=== PATIENT | male | born 1945 ===

== ENCOUNTER 2024-08-29 17:07 | Inpatient (IN) | payer OTHER ==
--- NOTE | 2024-08-29 17:22 | ED ---
General Adult HPI - General Chief complaint: Shortness of Breath Stated complaint: ANKIT Time Seen by Provider: 08/29/24 17:15 Source: patient, EMS, RN notes reviewed Mode of arrival: EMS Limitations: no limitations - History of Present Illness Initial comments: Patient is a 79-year-old male present to the emergency department with concerns with difficulty breathing. Symptoms have been occurring for months, worse today. Patient does have cough. Patient does feel more short of breath with cough. No fever. No calf pain or swelling. Patient does have a history of smoking however does not believe he is diagnosed with COPD. - Related Data Allergies Allergy/AdvReac Type Severity Reaction Status Date / Time No Known Allergies Allergy Verified 08/29/24 17:18 Review of Systems ROS Statement: Those systems with pertinent positive or pertinent negative responses have been documented in the HPI. ROS Other: All systems not noted in ROS Statement are negative. Constitutional: Denies: fever Eyes: Denies: eye pain ENT: Denies: ear pain Respiratory: Reports: as per HPI, cough, dyspnea Cardiovascular: Denies: chest pain Endocrine: Reports: fatigue Gastrointestinal: Denies: abdominal pain Past Medical History History of Any Multi-Drug Resistant Organisms: None Reported Past Psychological History: Unable to Obtain Smoking Status: Former smoker Past Alcohol Use History: None Reported Past Drug Use History: None Reported General Exam Limitations: no limitations General appearance: alert, in no apparent distress Head exam: Present: normocephalic Eye exam: Present: normal appearance Neck exam: Present: normal inspection Respiratory exam: Present: rhonchi, decreased breath sounds Cardiovascular Exam: Present: regular rate, normal rhythm GI/Abdominal exam: Present: soft. Absent: tenderness Extremities exam: Present: normal inspection. Absent: pedal edema, calf tenderness Neurological exam: Present: alert Psychiatric exam: Present: normal affect, normal mood Skin exam: Present: normal color Course Vital Signs 08/29/24 08/29/24 08/29/24 17:09 17:49 18:31 Temperature 97.4 F L Pulse Rate 94 93 90 Respiratory 20 16 22 Rate Blood Pressure 138/100 148/89 123/89 O2 Sat by Pulse 100 98 99 Oximetry 08/29/24 08/29/24 18:41 18:43 Temperature Pulse Rate 85 Respiratory 14 22 Rate Blood Pressure 123/89 O2 Sat by Pulse 100 Oximetry Medical Decision Making - Medical Decision Making Was pt. sent in by a medical professional or institution ([facility]ERMAN Murphy, [facility], urgent care, hospital, or long term...) When possible be specific @ -No Did you speak to anyone other than the patient for history (EMS, parent, family, police, friend...)? What history was obtained from this source @ -No Did you review nursing and triage notes (agree or disagree)? Why? @ -I reviewed and agree with nursing and triage notes Were old charts reviewed (outside hosp., previous admission, EMS record, old EKG, old radiological studies, urgent care reports/EKG's, long term records)? Report findings @ -No old charts were reviewed Differential Diagnosis (chest pain, altered mental status, abdominal pain women, abdominal pain men, vaginal bleeding, weakness, fever, dyspnea, syncope, headache, dizziness, GI bleed, back pain, seizure, CVA, palpatations, mental health, musculoskeletal)? @ -Differential Dyspnea: Coronary syndrome, arrhythmia, tamponade, asthma, COPD, pulmonary embolism, pneumonia, pneumothorax, pulmonary effusion, anaphylaxis, diabetic ketoacidosis, flailed chest, pulmonary contusion, diaphragmatic rupture, anemia, neuromuscular, this is not meant to be an all-inclusive list. EKG interpreted by me (3pts min.). @ -As above X-rays interpreted by me (1pt min.). @ -Chest x-ray shows diffuse interstitial changes CT interpreted by me (1pt min.). @ -CT scan chest shows diffuse honeycomb appearance U/S interpreted by me (1pt. min.). @ -None done What testing was considered but not performed or refused? (CT, X-rays, U/S, labs)? Why? @ -None What meds were considered but not given or refused? Why? @ -None Did you discuss the management of the patient with other professionals (professionals i.e. JERMAN Murphy, [facility] GRINDER, lab, RT, psych nurse, child welfare social worker, senior principal process engineer, teacher, food safety officer, correctional case manager)? Give summary @ -Case was discussed with Dr. Jessica trujillo [facility] who will admit covering hospital call Was smoking cessation discussed for >3mins.? @ -No Was critical care preformed (if so, how long)? @ -No Were there social determinants of health that impacted care today? How? (Homelessness, low income, unemployed, alcoholism, drug addiction, transportation, low edu. Level, literacy, decrease access to med. care, shelter, rehab)? @ -No Was there de-escalation of care discussed even if they declined (Discuss DNR or withdrawal of care, Hospice)? DNR status @ -No What co-morbidities impacted this encounter? (DM, HTN, Smoking, COPD, CAD, Cancer, CVA, ARF, Chemo, Hep., AIDS, mental health diagnosis, sleep apnea, mor bid obesity)? @ -History of tobacco use Was patient admitted / discharged? Hospital course, mention meds given and route, prescriptions, significant lab abnormalities, going to OR and other pertinent info. @ -Patient presents with cough and dyspnea. Patient presents like COPD patient however no previous diagnosis. Patient reevaluated and updated. Patient will be admitted with pulmonary consult. Admission orders written. Undiagnosed new problem with uncertain prognosis? @ -No Drug Therapy requiring intensive monitoring for toxicity (Heparin, Nitro, Insulin, Cardizem)? @ -No Were any procedures done? @ -No Diagnosis/symptom? @ -COPD Acute, or Chronic, or Acute on Chronic? @ -Acute Uncomplicated (without systemic symptoms) or Complicated (systemic symptoms)? @ -Default Side effects of treatment? @ -No Exacerbation, Progression, or Severe Exacerbation? @ -No Poses a threat to life or bodily function? How? (Chest pain, USA, MS, pneumonia, PE, COPD, DKA, ARF, appy, cholecystitis, CVA, Diverticulitis, Homicidal, Suicidal, threat to staff... and all critical care pts) @ -Threat to pulmonary function - Lab Data Result diagrams: 08/29/24 17:31 08/29/24 18:00 Lab Results 08/29/24 08/29/24 08/29/24 Range/Units 17:31 18:00 18:00 WBC 8.28 (4.50-10.00) 10*3/uL RBC 5.34 (4.40-5.60) 10*6/uL Hgb 16.6 (13.0-17.0) g/dL Hct 49.5 (39.6-50.0) % MCV 92.7 (80.0-97.0) fL MCH 31.1 (27.0-32.0) pg MCHC 33.5 (32.0-37.0) g/dL Plt Count 368 (140-440) 10*3/uL MPV 10.9 (9.5-12.2) fL Immature Gran % (Auto) 0.5 % Neutrophils % 58.6 % Lymphocytes % 31.2 % Monocytes % 7.6 % Eosinophils % 1.6 % Basophils % 0.5 % Immature Gran # 0.04 (0.00-0.04) 10*3/uL Neutrophils # 4.86 (1.80-7.70) 10*3/uL Lymphocytes # 2.58 (0.90-5.00) 10*3/uL Monocytes # 0.63 (0.20-1.00) 10*3/uL Eosinophils # 0.13 (0.04-0.35) 10*3/uL Basophils # 0.04 (0.00-0.10) 10*3/uL PT (10.0-12.5) sec INR (<1.2) APTT (22.0-30.0) sec D-Dimer (<0.60) mg/L FEU Sodium (137-145) mmol/L Potassium (3.5-5.1) mmol/L Chloride (98-107) mmol/L Carbon Dioxide (22-30) mmol/L Anion Gap mmol/L BUN (9-20) mg/dL Creatinine (0.66-1.25) mg/dL Est GFR (CKD-EPI)AfAm (>60 ml/min/1.73 sqM) Est GFR (CKD-EPI)NonAf (>60 ml/min/1.73 sqM) Glucose (74-99) mg/dL Plasma Lactic Acid Harmeet 1.6 (0.7-2.0) mmol/L Calcium (8.4-10.2) mg/dL Magnesium (1.6-2.3) mg/dL Total Bilirubin (0.2-1.3) mg/dL AST (17-59) U/L ALT (4-49) U/L Alkaline Phosphatase (38-126) U/L Troponin I 0.028 (0.000-0.034) ng/mL Total Protein (6.3-8.2) g/dL Albumin (3.5-5.0) g/dL Influenza Type A (PCR) (Not Detectd) Influenza Type B (PCR) (Not Detectd) RSV (PCR) (Not Detectd) SARS-CoV-2 (PCR) (Not Detectd) 08/29/24 08/29/24 08/29/24 Range/Units 18:00 18:00 18:48 WBC (4.50-10.00) 10*3/uL RBC (4.40-5.60) 10*6/uL Hgb (13.0-17.0) g/dL Hct (39.6-50.0) % MCV (80.0-97.0) fL MCH (27.0-32.0) pg MCHC (32.0-37.0) g/dL Plt Count (140-440) 10*3/uL MPV (9.5-12.2) fL Immature Gran % (Auto) % Neutrophils % % Lymphocytes % % Monocytes % % Eosinophils % % Basophils % % Immature Gran # (0.00-0.04) 10*3/uL Neutrophils # (1.80-7.70) 10*3/uL Lymphocytes # (0.90-5.00) 10*3/uL Monocytes # (0.20-1.00) 10*3/uL Eosinophils # (0.04-0.35) 10*3/uL Basophils # (0.00-0.10) 10*3/uL PT 13.6 H (10.0-12.5) sec INR 1.3 H (<1.2) APTT 26.0 (22.0-30.0) sec D-Dimer 2.23 H (<0.60) mg/L FEU Sodium 141 (137-145) mmol/L Potassium 4.1 (3.5-5.1) mmol/L Chloride 104 (98-107) mmol/L Carbon Dioxide 32 H (22-30) mmol/L Anion Gap 5 mmol/L BUN 19 (9-20) mg/dL Creatinine 0.98 (0.66-1.25) mg/dL Est GFR (CKD-EPI)AfAm 86 (>60 ml/min/1.73 sqM) Est GFR (CKD-EPI)NonAf 75 (>60 ml/min/1.73 sqM) Glucose 99 (74-99) mg/dL Plasma Lactic Acid Harmeet (0.7-2.0) mmol/L Calcium 8.0 L (8.4-10.2) mg/dL Magnesium 2.1 (1.6-2.3) mg/dL Total Bilirubin 0.7 (0.2-1.3) mg/dL AST 25 (17-59) U/L ALT 19 (4-49) U/L Alkaline Phosphatase 161 H (38-126) U/L Troponin I (0.000-0.034) ng/mL Total Protein 7.3 (6.3-8.2) g/dL Albumin 3.0 L (3.5-5.0) g/dL Influenza Type A (PCR) Not Detected (Not Detectd) Influenza Type B (PCR) Not Detected (Not Detectd) RSV (PCR) Not Detected (Not Detectd) SARS-CoV-2 (PCR) Not Detected (Not Detectd) Disposition Clinical Impression: Acute exacerbation of chronic obstructive pulmonary disease Disposition: ADMITTED IP TO THIS HOSP Is patient prescribed a controlled substance at d/c from ED?: No Referrals: None,Stated [Primary Care Provider] - 1-2 days Time of Disposition: 20:32
--- NOTE | 2024-08-29 18:01 | XR ---
EXAMINATION TYPE: XR chest 2V DATE OF EXAM: 08/29/2024 5:56 PM COMPARISON: None TECHNIQUE: XR chest 2V Frontal and lateral views of the chest. CLINICAL INDICATION:Male, 79 years old with history of difficulty breathing; FINDINGS: Lungs/Pleura: Multifocal airspace opacities throughout the lungs. No evidence of pneumothorax or pleu ral effusion. Pulmonary vascularity: Unremarkable. Heart/mediastinum: Cardiomediastinal silhouette is prominent in size. Musculoskeletal: No acute osseous pathology. IMPRESSION: Multifocal airspace opacities concerning for pneumonia. [facility], , 08/29/2024 5:59 PM
[2024-08-29 18:16] LABS: Basophils # (A) 0.04 10*3/uL (0.00-0.10); Basophils % (A) 0.5 %; Eosinophils # (A) 0.13 10*3/uL (0.04-0.35); Eosinophils % (A) 1.6 %; HCT 49.5 % (39.6-50.0); HGB 16.6 g/dL (13.0-17.0); Lymphocytes # (A) 2.58 10*3/uL (0.90-5.00); Lymphocytes % (A) 31.2 %; MCH 31.1 pg (27.0-32.0); MCHC 33.5 g/dL (32.0-37.0); MCV 92.7 fL (80.0-97.0); Mean Platelet Volume 10.9 fL (9.5-12.2); Monocytes # (A) 0.63 10*3/uL (0.20-1.00); Monocytes % (A) 7.6 %; Neutrophils # (A) 4.86 10*3/uL (1.80-7.70); Neutrophils % (A) 58.6 %; Platelet Count 368 10*3/uL (140-440); RBC 5.34 10*6/uL (4.40-5.60); RDW 17.5 % (11.5-14.5); WBC 8.28 10*3/uL (4.50-10.00)
[2024-08-29 18:36] LABS: ALT 19 U/L (4-49); AST 25 U/L (17-59); African American GFR (CKD) 86 (>60 ml/min/1.73 sqM); Alkaline Phosphatase 161 U/L (38-126); Anion Gap 5 mmol/L; Blood Urea Nitrogen 19 mg/dL (9-20); Carbon Dioxide 32 mmol/L (22-30); Chloride 104 mmol/L (98-107); Glucose 99 mg/dL (74-99); Magnesium 2.1 mg/dL (1.6-2.3); Non-African American GFR(CKD) 75 (>60 ml/min/1.73 sqM); Potassium 4.1 mmol/L (3.5-5.1); Sodium 141 mmol/L (137-145); Total Bilirubin 0.7 mg/dL (0.2-1.3); Total Protein 7.3 g/dL (6.3-8.2)
[2024-08-29 18:45] LABS: INR 1.3 (<1.2); Prothrombin Time 13.6 sec (10.0-12.5)
[2024-08-29] MEDS: methylPREDNISolone SOD SUCCI 125 MG/2 ML VIAL IV STA (18:50)
[2024-08-29 19:49] LABS: Influenza A Not Detected (Not Detectd); Influenza B Not Detected (Not Detectd); RSV Not Detected (Not Detectd)
[2024-08-29] MEDS ORDERED: NALOXONE 0.4 MG/ML 1 ML VIAL IVP PRN (20:32)
--- NOTE | 2024-08-29 20:38 | CT ---
EXAMINATION TYPE: CT angio chest CT DLP: 259.9 mGycm, Automated exposure control for dose reduction was used. DATE OF EXAM: 08/29/2024 8:07 PM COMPARISON: Chest radiograph from same day. CLINICAL INDICATION:Male, 79 years old with history of keturah; elevated d-dimer TECHNIQUE/CONTRAST: CTA scan of the thorax is performed with IV Contrast, patient injected with 100 mL of Isovue 370, pul monary embolism protocol. MIP images are created and reviewed. FINDINGS: Pulmonary Artery: There is no evidence for a filling defect within the pulmonary vasculature to sugge st acute pulmonary embolism. The pulmonary artery is dilated measuring up to 3.6 cm in diameter. Ref lux of contrast into the IVC and hepatic veins. Lungs/Pleura/airway: Few scattered calcified granulomas. No pleural effusion or pneumothorax. No foca l consolidation. Diffuse traction bronchiectasis. Large airways are patent with patulous appearance. Extensive honeycombing throughout the lungs. Predominantly peripheral and basilar distribution. There is some scattered subpleural reticulations. Scattered interlobular septal thickening. No suspicious pulmonary nodule or mass. Heart: Cardiomegaly is demonstrated. Mild coronary artery calcifications present. No pericardial eff usion. Vasculature: No evidence of aortic aneurysm. Minimal atherosclerotic calcification of the aorta and i ts branches. Mediastinum: Enlarged right hilar lymph node measuring up to 2.0 cm. Enlarged precarinal lymph node m easuring up to 2.3 cm. Additional enlarged bilateral hilar and mediastinal lymph nodes. Musculoskeletal: No acute osseous abnormalities. Mild multilevel degenerative disc disease with anter ior osteophytosis. Soft Tissues: Unremarkable. Lower neck: No significant findings. Upper Abdomen: No significant findings. IMPRESSION: 1. No evidence of pulmonary embolism. Dilated main pulmonary artery suggesting pulmonary arterial hyp ertension. 2. 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 3. Nonspecific enlarged mediastinal and hilar adenopathy. [facility], , 08/29/2024 8:35 PM
--- NOTE | 2024-08-29 20:52 | P.HPIM ---
History of Present Illness H&P Date: 08/29/24 Chief Complaint: SOB This is a 79-year-old male patient with no significant past medical history except for tobacco abuse. Patient reports that he is no longer smoking. He presents to the ER complaining of difficulty breathing for the past few months associated with productive cough of whitish-greenish sputum. He does report intermittent fevers and chills but not currently. Does not use oxygen at home. No sick contacts at home and no recent history of traveling. Patient reports that he used to smoke heavily with no history of COPD. Does not use any inhalers. Upon arrival to the ED, patient was hypertensive with a diastolic blood pressure of 100 and was hypoxic so nasal cannula was applied. Labs done and no significant leukocytosis. INR 1.3, D-dimer 2.2, chemistry with serum CO2 of 32, alk phos 161. COVID-19/RSV/influenza PCR is negative. Chest x-ray suggestive of multifocal pneumonia. CT angio did not show any pulmonary embolism but evidence of pulmonary arterial hypertension and marked interstitial fibrotic disease suggesting UIP with enlarged mediastinal and hilar adenopathy . Patient was treated with DuoNebs, steroids and antibiotics. Patient will be admitted for further management No significant past medical or surgical history Social history : Remote tobacco use, no alcohol use and no illicit drug use Review of systems : Negative except what mentioned HPI PE : General: Chronically ill-appearing, cachectic Derm: warm, dry, intact Head: atraumatic, normocephalic, symmetric Eyes: EOMI, anicteric sclera Mouth: no lip lesion, mucus membranes moist Cardiovascular: S1 S2 reg, no murmur, rubs, or gallops Lungs: Decreased breath sounds. Bilateral rhonchi heard at bases Abdominal: soft, non-tender to palpataion, no appreciable organomegaly Extremities: no gross muscle atrophy, no edema, no contractures Neuro: Alert, Oriented, CNII-XII grossly intact, gait normal Assessment and plan : Acute hypoxic respiratory failure due to CAP /pulmonary arterial hypertension/pulmonary fibrosis/UIP? : Continue with scheduled DuoNebs, IV Solu-Medrol, Rocephin and azithromycin Will order echocardiogram and consult pulmonology Currently stable on 2 L nasal cannula oxygen Pulmonary toilet Speech therapy to evaluate for swallowing Aspiration precaution Urine Legionella, pneumococcus, mycoplasma IgG and IgM, respiratory panel CODE STATUS is full code DVT prophylaxis on Lovenox subcu Disposition : Will have PT evaluate patient Time spent : 55 min Past Medical History History of Any Multi-Drug Resistant Organisms: None Reported Past Psychological History: Unable to Obtain Smoking Status: Former smoker Past Alcohol Use History: None Reported Past Drug Use History: None Reported Medications and Allergies Allergies Allergy/AdvReac Type Severity Reaction Status Date / Time No Known Allergies Allergy Verified 08/29/24 17:18 Physical Exam Vitals: Vital Signs Temp Pulse Resp BP Pulse Ox 08/29/24 18:43 22 08/29/24 18:41 85 14 123/89 100 08/29/24 18:31 90 22 123/89 99 08/29/24 17:49 93 16 148/89 98 08/29/24 17:09 97.4 F L 94 20 138/100 100 Intake and Output 08/29/24 08/29/24 08/29/24 06:59 14:59 22:59 Other: Weight 68.039 kg Results CBC & Chem 7: 08/29/24 17:31 08/29/24 18:00 Labs: Abnormal Lab Results - Last 24 Hours (Table) 08/29/24 08/29/24 Range/Units 18:00 18:00 PT 13.6 H (10.0-12.5) sec INR 1.3 H (<1.2) D-Dimer 2.23 H (<0.60) mg/L FEU Carbon Dioxide 32 H (22-30) mmol/L Calcium 8.0 L (8.4-10.2) mg/dL Alkaline Phosphatase 161 H (38-126) U/L Albumin 3.0 L (3.5-5.0) g/dL
[2024-08-29] MEDS: IPRATROPIUM-ALBUTEROL 3 ML NEB INHALATION STA (21:23)
[2024-08-29] MEDS: methylPREDNISolone SOD SUCCI 125 MG/2 ML VIAL IV SCH (23:54)
[2024-08-29] MEDS: ENOXAPARIN 40 MG/0.4 ML SYRINGE SQ SCH (23:54)
[2024-08-30] MEDS: AZITHROMYCIN 500 MG in SODIUM CHLORIDE 0.9% 250 ML IVPB SCH (01:32)
[2024-08-30] MEDS: IPRATROPIUM-ALBUTEROL 3 ML NEB INHALATION SCH (09:22)
--- NOTE | 2024-08-30 14:01 | P.CNPUL ---
History of Present Illness Consult date: 08/30/24 Requesting physician: Jostin Sandoval Reason for consult: dyspnea Chief complaint: Shortness of breath History of present illness: This is a 79-year-old male patient with a known history of chronic tobacco dependence however quit 10 years ago. He quit drinking alcohol 8 years ago. He does not have a primary care provider. He is not on any home medications. He presented here to the emergency room yesterday with a 1 month history of increasing shortness of breath until it was worse enough to bring him to the ER. Chest x-ray shows multifocal airspace opacities concerning for pneumonia. CT a ngiogram ruled out pulmonary embolism. There is few scattered calcified granulomas. No pleural effusion or pneumothorax. No focal consolidation. There is however diffuse traction bronchiectasis. Large airways are patent with patulous appearance. Extensive honeycombing throughout the lungs. Pr edominantly peripheral and basilar distribution. No suspicious pulmonary nodules or mass. White count 8.2. Hemoglobin 16.6. Platelets 368. D-dimer 2.23. Sodium 141. Potassium 4.1. Bicarb 32. BUN 19. Creatinine 0.98. A ST 25. ALT 19. Troponin negative x 1. proBNP 6410. Viral screen negative for influenza A/B, RSV and COVID. Urine Legionella antigen was negative. He is seen today in consultation on the regular medical floor. He is currently sitting up in bed. Awake and alert in no acute distress. He is . Speaks broken Guamanian. He is maintaining O2 saturations in the 90s on 4 L/min per nasal cannula. He is afebrile. Hemodynamically stable. Review of Systems REVIEW OF SYSTEMS: CONSTITUTIONAL: Denies any recent significant weight loss or weight gain. EYES: Denies change in vision. EARS, NOSE, MOUTH, THROAT: Denies headaches, denies sore throat. CARDIOVASCULAR: Denies chest pain, palpitations or syncopal episodes. RESPIRATORY: Positive for shortness of breath, no cough, congestion or hemoptysis. GASTROINTESTINAL: Denies change in appetite, denies abdominal pain GENITOURINARY: Denies hematuria, denies infections. MUSKULOSKELETAL: Denies pain, denies swelling. INTEGUMENTARY: Denies rash, denies eczema. NEUROLOGICAL: Denies recent memory loss, no recent seizure activity. PSYCHIATRIC: Denies anxiety, denies depression. HEMATOLOGIC/LYMPHATIC: Denies anemia, denies enlarged lymph nodes. Past Medical History History of Any Multi-Drug Resistant Organisms: None Reported Past Psychological History: Unable to Obtain Smoking Status: Former smoker Past Alcohol Use History: None Reported Past Drug Use History: None Reported Medications and Allergies Home Medications Medication Instructions Recorded Confirmed Type No Known Home Medications 08/29/24 08/29/24 History Allergies Allergy/AdvReac Type Severity Reaction Status Date / Time No Known Allergies Allergy Verified 08/29/24 20:48 Physical Exam Vitals: Vital Signs Temp Pulse Pulse Resp BP BP Pulse Ox 08/30/24 13:14 98.0 F 92 15 101/64 94 L 08/30/24 12:37 90 08/30/24 12:24 88 08/30/24 09:33 90 08/30/24 09:22 94 95 08/30/24 07:14 98.2 F 79 17 116/75 98 08/30/24 01:12 98.2 F 85 18 116/67 93 L 08/29/24 23:20 97.6 F 90 20 112/72 94 L 08/29/24 23:17 98.7 F 81 20 110/76 98 08/29/24 21:41 92 08/29/24 21:25 87 08/29/24 18:43 22 08/29/24 18:41 85 14 123/89 100 08/29/24 18:31 90 22 123/89 99 08/29/24 17:49 93 16 148/89 98 08/29/24 17:09 97.4 F L 94 20 138/100 100 Intake and Output 08/29/24 08/30/24 08/30/24 22:59 06:59 14:59 Output Total 100 Balance -100 Output: Urine 100 Other: Weight 68.039 kg 68.039 kg GENERAL EXAM: Alert, disheveled 79-year-old male, on 4 L nasal cannula, comfortable in no apparent distress. HEAD: Normocephalic. EYES: Normal reaction of pupils, equal size. NOSE: Clear with pink turbinates. THROAT: No erythema or exudates. NECK: No masses, no JVD. CHEST: No chest wall deformity. LUNGS: Equal air entry with coarse crackles in the bilateral bases. CVS: S1 and S2 normal with no audible murmur, regular rhythm. ABDOMEN: No hepatosplenomegaly, normal bowel sounds, no guarding or rigidity. SPINE: No scoliosis or deformity SKIN: No rashes CENTRAL NERVOUS SYSTEM: No focal deficits, tone is normal in all 4 extremities. EXTREMITIES: There is no peripheral edema. There is significant clubbing, no cyanosis. Peripheral pulses are intact. Results - Laboratory Findings CBC and BMP: 08/29/24 17:31 08/29/24 18:00 PT/INR, D-dimer PT 13.6 sec (10.0-12.5) H 08/29/24 18:00 INR 1.3 (<1.2) H 08/29/24 18:00 D-Dimer 2.23 mg/L FEU (<0.60) H 08/29/24 18:00 Abnormal lab findings: Abnormal Labs 08/29/24 08/29/24 18:00 18:00 PT 13.6 H INR 1.3 H D-Dimer 2.23 H Carbon Dioxide 32 H Calcium 8.0 L Alkaline Phosphatase 161 H Albumin 3.0 L - Diagnostic Findings Chest x-ray: image reviewed CT scan - chest: image reviewed Assessment and Plan Assessment: Acute hypoxemic respiratory failure secondary to suspected progressing of interstitial lung disease/pulmonary fibrosis. Significant clubbing noted of the fingers and toes Acute exacerbation of suspected chronic obstructive pulmonary disease History of chronic tobacco dependence however quit 10 years ago Poor medical compliance with no primary care provider Plan: The patient was seen and evaluated Imaging, labs and medications reviewed Suspect significant interstitial lung disease/pulmonary fibrosis Cannot rule out underlying pneumonia Cannot rule out underlying heart failure Check a procalcitonin Check a proBNP Obtain an echocardiogram Add DuoNeb inhalations Add Symbicort Add Solu-Medrol Continue ceftriaxone and azithromycin for now Currently on 4 L nasal cannula Titrate the FiO2 as tolerated Increase his activity as tolerated Educated regarding the importance of having a primary care provider We will continue to follow and make further recommendations based on his clinical status I have personally seen and examined the patient, performed the documentation and the assessment and plan as written. Number of minutes spent on the visit: 20 Dictation was produced using ivi[employer] dictation software. Please excuse any grammatical, word or spelling errors. Time with Patient: Greater than 30
--- NOTE | 2024-08-30 14:20 | P.PN ---
Subjective Progress Note Date: 08/30/24 Hospital course: Patient is a very pleasant 79-year-old male with a past medical history of previous heavy tobacco and alcohol use, quitting both nearly 10 years ago but does not follow outpatient with a primary care provider. He presented to the emergency department on 08/29/2024 with a chief complaint of shortness of breath and productive cough. Patient reports the symptoms began about 1 to 2 months ago but have progressively worsened. He reports intermittent fevers, productive cough of yellowishgreenish colored sputum production and states the symptoms worsen with minimal exertion. Per facility, patient underwent evaluation in the emergency department. Vital signs upon arrival show blood pressure 138/100, heart rate 94, respiratory rate 20, temp 97.4 F, and SpO2 100% on high flow nasal cannula at 11 L. EKG completed showing sinus mechanism at 91 bpm Chest x- ray showing multifocal airspace opacities. Labs completed and reviewed. CBC unremarkable. Coagulation profile showing elevated PT of 13.6, INR of 1.3, and D-dimer elevated at 2.23. BMP showing hypercarbia with bicarb of 32. Lactic acid 1.6. Glucose 99. Calcium 8.0. Magnesium 2.1. Liver profile showing elev ated alkaline phosphatase of 161. Troponin was 0.028. Albumin was low at 3.0. Corrected calcium 8.3. Troponin 0.028. CTA chest negative for PE showing few scattered calcified granulomas and diffuse traction bronchiectasis with extensive honeycombing throughout lungs scattered subpleural reticulations, scattered interlobular septal thickening with enlarged right hilar lymph node measuring up to 2 cm and precarinal lymph node measuring up to 2.3 cm and additional bilateral hilar and mediastinal lymph nodes. Influenza A, influenza B, RSV, and COVID PCR were negative. Urine Legionella negative. Physical exam: Patient seen and fully evaluated at bedside this morning. He reports his breathing seems to be a bit better since arrival to our facility. He remains on scheduled and as needed DuoNebs and IV steroids. Patient denies having any headache, lightheadedness, dizziness, chest pain, palpitations, or experiencing any numbness/tingling/weakness in his extremities. He denies having any nausea or vomiting and reports normal appetite. Vital signs reviewed and stable. General: Nontoxic, no distress and appears stated age. Thin, frail build Derm: Skin warm and dry, normal coloration for ethnicity. Head: Atraumatic, normocephalic and symmetric. Eyes: EOM's intact, no lid lag, and anicteric sclera Mouth: no lip lesions, mucus membranes moist Cardiovascular: regular rate and rhythm with normal S1S2, no murmur, positive posterior tibial pulses bilaterally, and cap refill < 2 seconds. Lungs: Respirations even, regular, and unlabored on supplemental oxygen. Lungs with bibasilar crackles worse in the left lower lobe. No wheezing, rhonchi or rales noted. Abdominal: soft, nontender to palpation, no guarding, no appreciable organomegaly Ext: ROM intact. No gross muscle atrophy, no edema, no contractures. Clubbing noted to fingers. Neuro: Speech clear, face symmetrical and CN II-XII grossly intact with no noted focal neuro deficits Psych: Alert and oriented to person, place, time, and situation. Appropriate and pleasant affect. Assessment and Plan of Care: Acute hypoxic and hypercarbic respiratory failure, suspect secondary to infectious process such as pneumonia accompanied by underlying undiagnosed pulmonary fibrosis History of heavy tobacco use elevated D-dimer, CTA negative for PE Elevated D-dimer, CTA negative for PE Diffuse hilar and mediastinal lymphadenopathy -Consult to Pulmonology -Oxygenation to be administered and titrated as needed to maintain SPO2 equal to or greater than 90% -Telemetry monitoring. -Monitor pulse-oximetry -Duonebs scheduled 4 times daily and as needed for SOB and/or wheezing -Incentive Spirometry -Steroids: Solu-Medrol 60 mg IVP every 6 hours -Antibiotics: Rocephin 2 g daily and azithromycin 500 mg daily. - Influenza A, influenza B, RSV, and COVID PCR negative. Urine Legionella negative. - Echocardiogram to be completed. - Follow-up on blood cultures, mycoplasma, procalcitonin level. Data and imaging reviewed: -Troponin 0.028. CTA chest negative for PE showing few scattered calcified granulomas and diffuse traction bronchiectasis with extensive honeycombing throughout lungs scattered subpleural reticulations, scattered interlobular septal thickening with enlarged right hilar lymph node measuring up to 2 cm and precarinal lymph node measuring up to 2.3 cm and additional bilateral hilar and mediastinal lymph nodes. Influenza A, influenza B, RSV, and COVID PCR were negative. -Urine Legionella negative. - Vital signs reviewed. Blood pressure 116/75, heart rate 79, respiratory rate 17, temp 98.2 F, and SpO2 of 98% on 4 L. CODE STATUS: Full code DVT prophylaxis: Lovenox Anticipated discharge date: Pending clinical course Anticipated discharge place: Pending clinical course, likely home Patient was seen independently by Nurse Pracitioner. This document was prepared using [employer] dictation software. Please allow for errors in child center assistant, while rare they do occur. Romie Lyman OPHTHALMOLOGY TECHNICIAN rendered care for this patient independently, reviewed the findings and plan as documented in the note above and agree with plan. I did not physically speak with or examine the patient on this date. Objective - Vital Signs Vital signs: Vital Signs Temp 98.2 F 08/30/24 07:14 Pulse 79 08/30/24 07:14 Resp 17 08/30/24 07:14 BP 116/75 08/30/24 07:14 Pulse Ox 98 08/30/24 07:14 FiO2 Intake & Output 08/29/24 08/30/24 08/30/24 18:59 06:59 18:59 Output Total 100 Balance -100 Weight 68.039 kg 68.039 kg Output: Urine 100 - Labs CBC & Chem 7: 08/29/24 17:31 08/29/24 18:00 Labs: Abnormal Lab Results - Last 24 Hours (Table) 08/29/24 08/29/24 Range/Units 18:00 18:00 PT 13.6 H (10.0-12.5) sec INR 1.3 H (<1.2) D-Dimer 2.23 H (<0.60) mg/L FEU Carbon Dioxide 32 H (22-30) mmol/L Calcium 8.0 L (8.4-10.2) mg/dL Alkaline Phosphatase 161 H (38-126) U/L Albumin 3.0 L (3.5-5.0) g/dL
[2024-08-30] MEDS: SYMBICORT 160-4.5 MCG INHALER INHALATION SCH (20:58)
[2024-08-31 10:05] LABS: HCT 43.5 % (39.6-50.0); HGB 13.8 g/dL (13.0-17.0); MCH 30.6 pg (27.0-32.0); MCHC 31.7 g/dL (32.0-37.0); MCV 96.5 FL (80.0-97.0); Mean Platelet Volume 10.3 FL (9.5-12.2); NRBC Per 100 WBC 0 X 10*3/uL (0.00-0.01); Platelet Count 313 X 10*3/uL (140-440); RBC 4.51 X 10*6/uL (4.40-5.60); RDW 15.8 % (11.5-14.5); WBC 15.55 X 10*3/uL (4.50-10.00)
[2024-08-31 10:11] LABS: ALT 16 U/L (10-49); AST 18 U/L (14-35); Albumin 2.8 g/dL (3.8-4.9); Albumin/Globulin Ratio 0.78 Ratio (1.60-3.17); Alkaline Phosphatase 135 U/L (41-126); BUN/Creat Ratio 35.86 Ratio (12.00-20.00); Blood Urea Nitrogen 25.1 mg/dL (9.0-27.0); Calcium 7.6 mg/dL (8.7-10.3); Carbon Dioxide 26.2 mmol/L (21.6-31.8); Chloride 102 mmol/L (96-109); Globulin 3.6 g/dL (1.6-3.3); Glucose 130 mg/dL (70-110); Potassium 5.2 mmol/L (3.5-5.5); Sodium 136 mmol/L (135-145); Total Bilirubin <0.2 mg/dL (0.3-1.2); Total Protein 6.4 g/dL (6.2-8.2)
--- NOTE | 2024-08-31 10:27 | CT ---
EXAMINATION TYPE: CT chest wo con DATE OF EXAM: 08/31/2024 COMPARISON: CTA chest dated 08/29/2024 CLINICAL INDICATION: Male, 79 years old with history of ILD; PHH, ILD. high resoultion. attempted pro ne pictures but patient could not breathe on belly and had to stop. TECHNIQUE: CT scan of the thorax is performed without IV contrast. CT DLP: 488.[address] CTDI: mGy Automated exposure control for dose reduction was used. FINDINGS: There is marked chronic interstitial lung disease with severe honeycombing with a significant apicoba napoleon gradient. There is marked traction bronchiectasis greatest within the lower lobes, lingula and ri ght middle lobe. There is no pleural effusion or pneumothorax. There is moderate cardiomegaly. The ascending thoracic aorta is borderline enlarged at 3.9-4.0 cm. Th e main pulmonary artery is dilated to 3.6-3.7 cm consistent with pulmonary hypertension. There is no definite mediastinal, hilar or axillary adenopathy. Limited scanning through the upper abdomen reveals no gross abnormality. There are no focal osseous lesions. IMPRESSION: 1. 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 Dilated main pulmonary artery to 3.6 to 3.7 cm indicating pulmonary hypertension. 3. Borderline enlargement of the ascending thoracic aorta which is 3.9-4.0 cm. [facility], , 08/31/2024 10:25 AM
--- NOTE | 2024-08-31 11:09 | P.PN ---
Subjective Progress Note Date: 08/31/24 This is a 79-year-old male patient with a known history of chronic tobacco dependence however quit 10 years ago. He quit drinking alcohol 8 years ago. He does not have a primary care provider. He is not on any home medications. He presented here to the emergency room yesterday with a 1 month history of increasing shortness of breath until it was worse enough to bring him to the ER. Chest x-ray shows multifocal airspace opacities concerning for pneumonia. CT angiogram ruled out pulmonary embolism. There is few scattered calcified granulomas. No pleural effusion or pneumothorax. No focal consolidation. There is however diffuse traction bronchiectasis. Large airways are patent with patulous appearance. Extensive honeycombing throughout the lungs. Predominantly peripheral and basilar distribution. No suspicious pulmonary nodules or mass. White count 8.2. Hemoglobin 16.6. Platelets 368. D-dimer 2.23. Sodium 141. Potassium 4.1. Bicarb 32. BUN 19. Creatinine 0.98. A ST 25. ALT 19. Troponin negative x 1. proBNP 6410. Viral screen negative for influenza A/B, RSV and COVID. Urine Legionella antigen was negative. He is seen today in consultation on the regular medical floor. He is currently sitting up in bed. Awake and alert in no acute distress. He is . Speaks broken Belarusian. He is maintaining O2 saturations in the 90s on 4 L/min per nasal cannula. He is afebrile. Hemodynamically stable. The patient is seen today August 31, 2024 in follow-up on the regular medical floor. He is currently resting in bed. Awake and alert in no acute distress. Breathing a bit easier today compared to yesterday. He is maintaining O2 saturation in the 90s on 4 L/min per nasal cannula. Receiving normal saline at 20 mL/h. He is continued on ceftriaxone and azithromycin. Procalcitonin was negative at 0.2. White count 15.5. Hemoglobin 13.8. Platelets 313. Sodium 136. Potassium 5.2. Bicarb 26. BUN 25. Creatinine 0.7. Glucose 130. proBNP 6410. He remains on DuoNeb inhalations, Symbicort, Solu-Medrol. Lovenox for DVT prophylaxis. Objective - Vital Signs Vital signs: Vital Signs Temp 98.0 F 08/31/24 07:21 Pulse 80 08/31/24 08:49 Resp 18 06/21/25 07:21 BP 125/78 08/31/24 07:21 Pulse Ox 99 08/31/24 08:37 FiO2 Intake & Output 08/30/24 08/31/24 08/31/24 18:59 06:59 18:59 Intake Total 360 Output Total 500 Balance -140 Intake: Oral 360 Output: Urine 500 Other: Voiding Method Toilet Toilet Urinal Urinal # Voids 4 1 1 - Exam GENERAL EXAM: Alert, pleasant 79-year-old male, on 4 L nasal cannula, comfortable in no apparent distress. HEAD: Normocephalic. EYES: Normal reaction of pupils, equal size. NOSE: Clear with pink turbinates. THROAT: No erythema or exudates. NECK: No masses, no JVD. CHEST: No chest wall deformity. LUNGS: Equal air entry with coarse crackles in the bilateral bases. CVS: S1 and S2 normal with no audible murmur, regular rhythm. ABDOMEN: No hepatosplenomegaly, normal bowel sounds, no guarding or rigidity. SPINE: No scoliosis or deformity SKIN: No rashes CENTRAL NERVOUS SYSTEM: No focal deficits, tone is normal in all 4 extremities. EXTREMITIES: There is no peripheral edema. There is significant clubbing, no cyanosis. Peripheral pulses are intact. - Labs CBC & Chem 7: 08/31/24 05:31 08/31/24 05:31 Labs: Abnormal Lab Results - Last 24 Hours (Table) 08/31/24 08/31/24 Range/Units 05:31 05:31 WBC 15.55 H (4.50-10.00) X 10*3/uL MCHC 31.7 L (32.0-37.0) g/dL RDW 15.8 H (11.5-14.5) % BUN/Creatinine Ratio 35.86 H (12.00-20.00) Ratio Glucose 130 H (70-110) mg/dL Calcium 7.6 L (8.7-10.3) mg/dL Total Bilirubin <0.2 L (0.3-1.2) mg/dL Alkaline Phosphatase 135 H (41-126) U/L Albumin 2.8 L (3.8-4.9) g/dL Globulin 3.6 H (1.6-3.3) g/dL Albumin/Globulin Ratio 0.78 L (1.60-3.17) Ratio Microbiology - Last 24 Hours (Table) 08/29/24 21:45 Blood Culture - Preliminary Blood Assessment and Plan Assessment: Acute hypoxemic respiratory failure secondary to suspected progressing of interstitial lung disease/pulmonary fibrosis. Significant clubbing noted of the fingers and toes. High-resolution CT scan of the chest reveals significant interstitial lung disease/pulmonary fibrosis. Acute exacerbation of suspected chronic obstructive pulmonary disease History of chronic tobacco dependence however quit 10 years ago Poor medical compliance with no primary care provider Plan: The patient was seen and evaluated Labs and medications reviewed High-resolution CT scan of the chest confirms significant interstitial lung disease/pulmonary fibrosis Procalcitonin negative Antibiotics discontinued BNP elevated Lasix 40 mg IVP x 1 Obtain an echocardiogram Continue DuoNeb inhalations Continue Symbicort Discontinue Solu-Medrol Currently on 4 L nasal cannula Titrate the FiO2 as tolerated May need home oxygen at discharge Increase his activity as tolerated This patient was seen independently by the pulmonary nurse practitioner addressing pulmonary I have personally seen and examined the patient, performed the documentation and the assessment and plan as written. Number of minutes spent on the visit: 25 Dictation was produced using [employer] dictation software. Please excuse any grammatical, word or spelling errors.
--- NOTE | 2024-08-31 11:19 | US ---
EXAMINATION TYPE: US mass soft tissue chest/back DATE OF EXAM: 08/31/2024 COMPARISON: NONE CLINICAL INDICATION: Male, 79 years old with history of painful lump/mass on thoracic region of back; Painful lump for 9 years, growing gradually TECHNIQUE: Lump on left side of back, left of the spine FINDINGS: Hypoechoic area seen within Area of Palp Left back: 1.9x0.6x1.5cm Well-circumscribed 1.9 x 1.5 x 0.6 cm subcutaneous soft tissue mass with through transmission. There are low level echoes indicating mildly complex fluid. There is no blood flow no evidence of a solid c omponent. Impression: 1.9 cm complex cyst. It is amenable to ultrasound-guided fluid aspiration. [facility], Workstation: [id number] 08/31/2024 11:17 AM
[2024-08-31] MEDS: FUROSEMIDE 10 MG/ML 4 ML VIAL IV STA (13:03)
--- NOTE | 2024-08-31 14:48 | P.PN ---
Subjective Progress Note Date: 08/31/24 Hospital course: Patient is a very pleasant 79-year-old male with a past medical history of previous heavy tobacco and alcohol use, quitting both nearly 10 years ago but does not follow outpatient with a primary care provider. He presented to the emergency department on 08/29/2024 with a chief complaint of shortness of breath and productive cough. Patient reports the symptoms began about 1 to 2 months ago but have progressively worsened. He reports intermittent fevers, productive cough of yellowishgreenish colored sputum production and states the symptoms worsen with minimal exertion. Per facility, patient underwent evaluation in the emergency department. Vital signs upon arrival show blood pressure 138/100, heart rate 94, respiratory rate 20, temp 97.4 F, and SpO2 100% on high flow nasal cannula at 11 L. EKG completed showing sinus mechanism at 91 bpm Chest x- ray showing multifocal airspace opacities. Labs completed and reviewed. CBC unremarkable. Coagulation profile showing elevated PT of 13.6, INR of 1.3, and D-dimer elevated at 2.23. BMP showing hypercarbia with bicarb of 32. Lactic acid 1.6. Glucose 99. Calcium 8.0. Magnesium 2.1. Liver profile showing elev ated alkaline phosphatase of 161. Troponin was 0.028. Albumin was low at 3.0. Corrected calcium 8.3. Troponin 0.028. CTA chest negative for PE showing few scattered calcified granulomas and diffuse traction bronchiectasis with extensive honeycombing throughout lungs scattered subpleural reticulations, scattered interlobular septal thickening with enlarged right hilar lymph node measuring up to 2 cm and precarinal lymph node measuring up to 2.3 cm and additional bilateral hilar and mediastinal lymph nodes. Influenza A, influenza B, RSV, and COVID PCR were negative. Urine Legionella negative. Physical exam: Patient seen and fully evaluated at bedside this morning. He reports his breathing continues to improve but still not back at baseline. Patient also reporting superficial pain and a lump on his back, upon assessment patient has 2 to 3 cm superficial cyst/abscess to thoracic region of his back. Area is tender to touch with no noted erythema or drainage. Vital signs reviewed and stable. General: Nontoxic, no distress and appears stated age. Thin, frail build Derm: Skin warm and dry, normal coloration for ethnicity. 2-3 cm cyst noted on thoracic region of back that is reported as painful upon palpation, no drainage, no surrounding erythema Head: Atraumatic, normocephalic and symmetric. Eyes: EOM's intact, no lid lag, and anicteric sclera Mouth: no lip lesions, mucus membranes moist Cardiovascular: regular rate and rhythm with normal S1S2, no murmur, positive posterior tibial pulses bilaterally, and cap refill < 2 seconds. Lungs: Respirations even, regular, and unlabored on supplemental oxygen. Lungs with bibasilar crackles worse in the left lower lobe. No wheezing, rhonchi or rales noted. Abdominal: soft, nontender to palpation, no guarding, no appreciable organomegaly Ext: ROM intact. No gross muscle atrophy, no edema, no contractures. Clubbing noted to fingers. Neuro: Speech clear, face symmetrical and CN II-XII grossly intact with no noted focal neuro deficits Psych: Alert and oriented to person, place, time, and situation. Appropriate and pleasant affect. Assessment and Plan of Care: Acute hypoxic and hypercarbic respiratory failure, pneumonia ruled out and CT confirming pulmonary fibrosis History of heavy tobacco use Elevated D-dimer, CTA negative for PE Diffuse hilar and mediastinal lymphadenopathy - Pulmonology following, discussed plan in detail with pulmonary IRON MOLDER HELPER - Oxygenation to be administered and titrated as needed to maintain SPO2 equal to or greater than 90% - Telemetry monitoring. - Monitor pulse-oximetry - Duonebs scheduled 4 times daily and as needed for SOB and/or wheezing - Incentive Spirometry - Steroids: Solu-Medrol continued by pulmonology patient started on Symbicort 604.5 mcg inhaler 2 puffs twice daily - Patient received 2-day course of antibiotics with azithromycin and Rocephin, procalcitonin negative pneumonia ruled out and antibiotics discontinued. - Influenza A, influenza B, RSV, and COVID PCR negative. Urine Legionella negative. - Echocardiogram to be completed. - Blood culture showing no growth to date and procalcitonin was negative at less than 0.20.. Back pain, Painful Cyst to thoracic region of back -Order placed for soft tissue ultrasound and upon follow-up of results revealing a 1.9 cm complex cyst that radiologist reports is amendable to ultrasound-guided fluid aspiration. -Discussed with general surgeon and consult placed at this time for possible drainage. Data and imaging reviewed: -Labs reviewed.Blood culture showing no growth to date and procalcitonin was negative at less than 0.20.. Showing leukocytosis with WBC count of 15.55. BMP unremarkable. Blood glucose 130. Magnesium 2.0. Calcium 7.6 with corrected calcium of 7.9. - Urine Legionella negative. - Vital signs reviewed. Blood pressure 125 heart rate 70 rate 18, temp 98.0 F, and SpO2 of 94% on 4 L - Ultrasound soft tissue was completed showing a 1.9 cm complex cyst/subcutane ous mass on thoracic region of back. CODE STATUS: Full code DVT prophylaxis: Lovenox Anticipated discharge date: Pending clinical course Anticipated discharge place: Pending clinical course, likely home Patient was seen independently by Nurse Pracitioner. This document was prepared using [employer] dictation software. Please allow for errors in claim approver, while rare they do occur. Romie Lyman NP rendered care for this patient independently, reviewed the findings and plan as documented in the note above and agree with plan. I did not physically speak with or examine the patient on this date. Objective - Vital Signs Vital signs: Vital Signs Temp 97.6 F 08/31/24 00:53 Pulse 76 08/31/24 08:37 Resp 20 08/31/24 00:53 BP 111/69 08/31/24 00:53 Pulse Ox 99 08/31/24 08:37 FiO2 Intake & Output 08/30/24 08/31/24 08/31/24 18:59 06:59 18:59 Intake Total 360 Output Total 500 Balance -140 Intake: Oral 360 Output: Urine 500 Other: Voiding Method Toilet Urinal # Voids 4 1 - Labs CBC & Chem 7: 08/31/24 05:31 08/31/24 05:31 Labs: Microbiology - Last 24 Hours (Table) 08/29/24 21:45 Blood Culture - Preliminary Blood
--- NOTE | 2024-08-31 17:58 | P.CON ---
Consult Note - . Consult date: 08/31/24 Assessment/Plan:: This is a 79 year old male admitted for acute hypoxemic respiratory failure secondary to suspected progressing of interstitial lung disease/pulmonary fibrosis and Acute exacerbation of suspected chronic obstructive pulmonary disease. He is currently sitting up in bed and not having any respiratory issues. He is complaining of back pain and states he can not lay flat on back due to the pain. Patient has a cyst over his thoracic spine which is the cause of the pain. Imaging showed a complex cyst. He denies fevers and chills. Review of Systems ROS Statement: Those systems with pertinent positive or pertinent negative responses have been documented in the HPI. ROS Other: All systems not noted in ROS Statement are negative. Constitutional: Denies: fever Eyes: Denies: eye pain ENT: Denies: ear pain Respiratory: Reports: as per HPI, cough, dyspnea Cardiovascular: Denies: chest pain Endocrine: Reports: fatigue Gastrointestinal: Denies: abdominal pain Past Medical History History of Any Multi-Drug Resistant Organisms: None Reported Past Psychological History: Unable to Obtain Smoking Status: Former smoker Past Alcohol Use History: None Reported Past Drug Use History: None Reported General Exam Limitations: no limitations General appearance: alert, in no apparent distress Head exam: Present: normocephalic Eye exam: Present: normal appearance Neck exam: Present: normal inspection Respiratory exam: Present: rhonchi, decreased breath sounds Cardiovascular Exam: Present: regular rate, normal rhythm GI/Abdominal exam: Present: soft. Absent: tenderness Extremities exam: Present: normal inspection. Absent: pedal edema, calf tenderness Neurological exam: Present: alert Psychiatric exam: Present: normal affect, normal mood Skin exam: Present: normal color 79 year old male with back pain and associated complex cyst over his thoracic spine. Patient is requesting inpatient intervention. -Will plan for surgical excision of cyst Monday pending patients clinical course and pulmonary status. Surgery can be performed under local anesthesia with twilight sedation. Recommend against aspiration of the cyst as the cyst will reoccur and continue to be problematic for patient. Plan discussed with patient and he is agreeable. Alvarado Schmitt DO [facility] [phone]
[2024-08-31] MEDS: CALCIUM GLUCONATE IN NACL 1 GM in SALINE 1 100ML.BAG IVPB ONE (18:15)
[2024-09-01 09:57] LABS: Basophils # (A) 0.01 X 10*3/uL (0.00-0.10); Basophils % (A) 0.1 %; Eosinophils # (A) 0.04 X 10*3/uL (0.04-0.35); Eosinophils % (A) 0.3 %; HCT 42.5 % (39.6-50.0); HGB 13.4 g/dL (13.0-17.0); Lymphocytes # (A) 2.38 X 10*3/uL (0.90-5.00); Lymphocytes % (A) 18.4 %; MCH 30.5 pg (27.0-32.0); MCHC 31.5 g/dL (32.0-37.0); MCV 96.6 FL (80.0-97.0); Mean Platelet Volume 10.6 FL (9.5-12.2); Monocytes # (A) 1.01 X 10*3/uL (0.20-1.00); Monocytes % (A) 7.8 %; NRBC Per 100 WBC 0 X 10*3/uL (0.00-0.01); Neutrophils # (A) 9.46 X 10*3/uL (1.80-7.70); Neutrophils % (A) 72.9 %; Platelet Count 281 X 10*3/uL (140-440); RDW 15.7 % (11.5-14.5); WBC 12.96 X 10*3/uL (4.50-10.00)
[2024-09-01 10:11] LABS: Blood Urea Nitrogen 25.2 mg/dL (9.0-27.0); Calcium 7.5 mg/dL (8.7-10.3); Carbon Dioxide 31.7 mmol/L (21.6-31.8); Chloride 98 mmol/L (96-109); Glucose 103 mg/dL (70-110); Potassium 4.5 mmol/L (3.5-5.5); Sodium 135 mmol/L (135-145)
--- NOTE | 2024-09-01 11:39 | P.PN ---
Subjective Progress Note Date: 09/01/24 This is a 79-year-old male patient with a known history of chronic tobacco dependence however quit 10 years ago. He quit drinking alcohol 8 years ago. He does not have a primary care provider. He is not on any home medications. He presented here to the emergency room yesterday with a 1 month history of increasing shortness of breath until it was worse enough to bring him to the ER. Chest x-ray shows multifocal airspace opacities concerning for pneumonia. CT angiogram ruled out pulmonary embolism. There is few scattered calcified granulomas. No pleural effusion or pneumothorax. No focal consolidation. There is however diffuse traction bronchiectasis. Large airways are patent with patulous appearance. Extensive honeycombing throughout the lungs. Predominantly peripheral and basilar distribution. No suspicious pulmonary nodules or mass. White count 8.2. Hemoglobin 16.6. Platelets 368. D-dimer 2.23. Sodium 141. Potassium 4.1. Bicarb 32. BUN 19. Creatinine 0.98. A ST 25. ALT 19. Troponin negative x 1. proBNP 6410. Viral screen negative for influenza A/B, RSV and COVID. Urine Legionella antigen was negative. He is seen today in consultation on the regular medical floor. He is currently sitting up in bed. Awake and alert in no acute distress. He is . Speaks broken Estonian. He is maintaining O2 saturations in the 90s on 4 L/min per nasal cannula. He is afebrile. Hemodynamically stable. The patient is seen today August 31, 2024 in follow-up on the regular medical floor. He is currently resting in bed. Awake and alert in no acute distress. Breathing a bit easier today compared to yesterday. He is maintaining O2 saturation in the 90s on 4 L/min per nasal cannula. Receiving normal saline at 20 mL/h. He is continued on ceftriaxone and azithromycin. Procalcitonin was negative at 0.2. White count 15.5. Hemoglobin 13.8. Platelets 313. Sodium 136. Potassium 5.2. Bicarb 26. BUN 25. Creatinine 0.7. Glucose 130. proBNP 6410. He remains on DuoNeb inhalations, Symbicort, Solu-Medrol. Lovenox for DVT prophylaxis. The patient is seen today September 01, 2024 in follow-up on the regular medical floor. He is currently resting comfortably in bed. Awake and alert in no acute distress. Denies any worsening shortness of breath, cough or congestion. He is continued on DuoNeb and elations, Symbicort. Lovenox for DVT prophylaxis. An ultrasound of the cyst on his back reveals a 1.9 cm complex cyst. Amendable to ultrasound-guided fluid aspiration. Blood culture reveals no growth. White count 12.9. Hemoglobin 13.4. Platelets 281. Sodium 135. Potassium 4.5. Bicarb 32. BUN 25. Creatinine 0.8. Glucose 103. Objective - Vital Signs Vital signs: Vital Signs Temp 97.9 F 09/01/24 09:48 Pulse 78 09/01/24 09:54 Resp 15 09/01/24 09:48 BP 95/75 09/01/24 09:48 Pulse Ox 91 L 09/01/24 09:48 FiO2 Intake & Output 08/31/24 09/01/24 09/01/24 18:59 06:59 18:59 Intake Total 550 920 Output Total 800 Balance -250 920 Intake: Oral 550 920 Output: Urine 800 Other: Voiding Method Toilet Toilet Toilet Urinal Urinal Urinal # Voids 1 2 - Exam GENERAL EXAM: Alert, pleasant 79-year-old male, resting in bed, on 4 L nasal cannula, comfortable in no apparent distress. HEAD: Normocephalic. EYES: Normal reaction of pupils, equal size. NOSE: Clear with pink turbinates. THROAT: No erythema or exudates. NECK: No masses, no JVD. CHEST: No chest wall deformity. LUNGS: Equal air entry with coarse crackles in the bilateral bases. CVS: S1 and S2 normal with no audible murmur, regular rhythm. ABDOMEN: No hepatosplenomegaly, normal bowel sounds, no guarding or rigidity. SPINE: No scoliosis or deformity. There is a soft tissue mass noted on his back. SKIN: No rashes CENTRAL NERVOUS SYSTEM: No focal deficits, tone is normal in all 4 extremities. EXTREMITIES: There is no peripheral edema. There is significant clubbing, no cyanosis. Peripheral pulses are intact. - Labs CBC & Chem 7: 09/01/24 04:47 09/01/24 04:47 Labs: Abnormal Lab Results - Last 24 Hours (Table) 09/01/24 09/01/24 Range/Units 04:47 04:47 WBC 12.96 H (4.50-10.00) X 10*3/uL MCHC 31.5 L (32.0-37.0) g/dL RDW 15.7 H (11.5-14.5) % Immature Gran # 0.06 H (0.00-0.04) X 10*3/uL Neutrophils # 9.46 H (1.80-7.70) X 10*3/uL Monocytes # 1.01 H (0.20-1.00) X 10*3/uL BUN/Creatinine Ratio 31.50 H (12.00-20.00) Ratio Calcium 7.5 L (8.7-10.3) mg/dL Microbiology - Last 24 Hours (Table) 08/29/24 21:45 Blood Culture - Preliminary Blood Assessment and Plan Assessment: Acute hypoxemic respiratory failure secondary to suspected progressing of interstitial lung disease/pulmonary fibrosis. Significant clubbing noted of the fingers and toes. High-resolution CT scan of the chest reveals significant interstitial lung disease/pulmonary fibrosis/UIP Acute exacerbation of suspected chronic obstructive pulmonary disease History of chronic tobacco dependence however quit 10 years ago Poor medical compliance with no primary care provider Plan: The patient was seen and evaluated Labs and medications reviewed Ultrasound of the cyst on his back reviewed Plan is for surgical excision tomorrow Echocardiogram pending Continue DuoNeb inhalations Continue Symbicort Currently on 4 L nasal cannula Titrate down the FiO2 as tolerated May need home oxygen at discharge Increase his activity as tolerated I have personally seen and examined the patient, performed the documentation and the assessment and plan as written. Number of minutes spent on the visit: 10 Dictation was produced using [employer] dictation software. Please excuse any grammatical, word or spelling errors.
[2024-09-01 11:56] LABS: Glucose,Whole Blood 100 mg/dL (70-110)
--- NOTE | 2024-09-01 12:16 | P.PN ---
Subjective Progress Note Date: 09/01/24 Hospital course: Patient is a very pleasant 79-year-old male with a past medical history of previous heavy tobacco and alcohol use, quitting both nearly 10 years ago but does not follow outpatient with a primary care provider. He presented to the emergency department on 08/29/2024 with a chief complaint of shortness of breath and productive cough. Patient reports the symptoms began about 1 to 2 months ago but have progressively worsened. He reports intermittent fevers, productive cough of yellowishgreenish colored sputum production and states the symptoms worsen with minimal exertion. Per facility, patient underwent evaluation in the emergency department. Vital signs upon arrival show blood pressure 138/100, heart rate 94, respiratory rate 20, temp 97.4 F, and SpO2 100% on high flow nasal cannula at 11 L. EKG completed showing sinus mechanism at 91 bpm Chest x- ray showing multifocal airspace opacities. Labs completed and reviewed. CBC unremarkable. Coagulation profile showing elevated PT of 13.6, INR of 1.3, and D-dimer elevated at 2.23. BMP showing hypercarbia with bicarb of 32. Lactic acid 1.6. Glucose 99. Calcium 8.0. Magnesium 2.1. Liver profile showing elevated alkaline phosphatase of 161. Troponin was 0.028. Albumin was low at 3.0. Corrected calcium 8.3. Troponin 0.028. CTA chest negative for PE showing few scattered calcified granulomas and diffuse traction bronchiectasis with extensive honeycombing throughout lungs scattered subpleural reticulations, scattered interlobular septal thickening with enlarged right hilar lymph node measuring up to 2 cm and precarinal lymph node measuring up to 2.3 cm and additional bilateral hilar and mediastinal lymph nodes. Influenza A, influenza B, RSV, and COVID PCR were negative. Urine Legionella negative. Physical exam: Patient seen and fully evaluated at bedside this morning. He reports his breathing is good on supplemental oxygen. Patient encouraged to increase activity and out of bed with all meals today. Plan is for I&D of cyst tomorrow. Will complete home oxygen evaluation tomorrow morning. Consult was placed to case management for assistance with setting up home oxygen. Vital signs reviewed and stable. General: Nontoxic, no distress and appears stated age. Thin, frail build Derm: Skin warm and dry, normal coloration for ethnicity. 2-3 cm cyst noted on thoracic region of back that is reported as painful upon palpation, no drainage, no surrounding erythema Head: Atraumatic, normocephalic and symmetric. Eyes: EOM's intact, no lid lag, and anicteric sclera Mouth: no lip lesions, mucus membranes moist Cardiovascular: regular rate and rhythm with normal S1S2, no murmur, positive posterior tibial pulses bilaterally, and cap refill < 2 seconds. Lungs: Respirations even, regular, and unlabored on supplemental oxygen. Lungs with bibasilar crackles worse in the left lower lobe. No wheezing, rhonchi or rales noted. Abdominal: soft, nontender to palpation, no guarding, no appreciable organomegaly Ext: ROM intact. No gross muscle atrophy, no edema, no contractures. Clubbing noted to fingers. Neuro: Speech clear, face symmetrical and CN II-XII grossly intact with no noted focal neuro deficits Psych: Alert and oriented to person, place, time, and situation. Appropriate and pleasant affect. Assessment and Plan of Care: Acute hypoxic and hypercarbic respiratory failure, suspect secondary to interstitial lung disease with pulmonary fibrosis History of heavy tobacco use Elevated D-dimer, CTA negative for PE Diffuse hilar and mediastinal lymphadenopathy - Pulmonology following, discussed plan in detail with pulmonary NETWORKER - Oxygenation to be administered and titrated as needed to maintain SPO2 equal to or greater than 90%, wean as patient tolerates and encourage increasing of activity - Telemetry monitoring. - Monitor pulse-oximetry - Duonebs scheduled 4 times daily and as needed for SOB and/or wheezing - Incentive Spirometry - Continue Symbicort 604.5 mcg inhaler 2 puffs twice daily - Awaiting echocardiogram to be completed. - Blood culture showing no growth to date and procalcitonin was negative at less than 0.20.. Back pain, Painful Cyst to thoracic region of back -Soft tissue ultrasound of back revealing a 1.9 cm complex cyst that radiologist reports is amendable to ultrasound-guided fluid aspiration. -Discussed with general surgeon and plan is for incision and drainage of cyst tomorrow. Data and imaging reviewed: -Labs reviewed.Blood culture showing no growth to date. CBC showing leukocytosis with WBC count of 12.96. BMP unremarkable. Blood glucose 103. Magnesium 2.0. Calcium 7.6 with corrected calcium of 7.9. - Vital signs reviewed. Blood pressure slightly soft this morning at 95/75, heart rate 82, respiratory rate 15, temp 97.9 F, and SpO2 of 91% on 4 L. CODE STATUS: Full code DVT prophylaxis: Lovenox Anticipated discharge date: Pending clinical course Anticipated discharge place: Pending clinical course, likely home Patient was seen independently by Nurse Pracitioner. This document was prepared using [employer] dictation software. Please allow for errors in shot peen operator, while rare they do occur. Romie Lyman NETWORKER rendered care for this patient independently, reviewed the find ings and plan as documented in the note above and agree with plan. I did not physically speak with or examine the patient on this date. Objective - Vital Signs Vital signs: Vital Signs Temp 97.5 F L 09/01/24 01:00 Pulse 77 09/01/24 01:00 Resp 16 09/01/24 01:00 BP 110/66 09/01/24 01:00 Pulse Ox 97 09/01/24 01:00 FiO2 Intake & Output 08/31/24 09/01/24 09/01/24 18:59 06:59 18:59 Intake Total 550 920 Output Total 800 Balance -250 920 Intake: Oral 550 920 Output: Urine 800 Other: Voiding Method Toilet Toilet Urinal Urinal # Voids 1 2 - Labs CBC & Chem 7: 09/01/24 04:47 09/01/24 04:47 Labs: Abnormal Lab Results - Last 24 Hours (Table) 08/31/24 08/31/24 Range/Units 05:31 05:31 WBC 15.55 H (4.50-10.00) X 10*3/uL MCHC 31.7 L (32.0-37.0) g/dL RDW 15.8 H (11.5-14.5) % BUN/Creatinine Ratio 35.86 H (12.00-20.00) Ratio Glucose 130 H (70-110) mg/dL Calcium 7.6 L (8.7-10.3) mg/dL Total Bilirubin <0.2 L (0.3-1.2) mg/dL Alkaline Phosphatase 135 H (41-126) U/L Albumin 2.8 L (3.8-4.9) g/dL Globulin 3.6 H (1.6-3.3) g/dL Albumin/Globulin Ratio 0.78 L (1.60-3.17) Ratio Microbiology - Last 24 Hours (Table) 08/29/24 21:45 Blood Culture - Preliminary Blood
[2024-09-01] MEDS: CALCIUM GLUCONATE IN NACL 1 GM in SALINE 1 100ML.BAG IVPB ONE (12:50)
--- NOTE | 2024-09-01 13:24 | P.PN ---
Progress Note - Text Progress Note Date: 09/01/24 No acute events overnight. Having back pain when is laying flat from cyst. General appearance: alert, in no apparent distress Head exam: Present: normocephalic Eye exam: Present: normal appearance Neck exam: Present: normal inspection Respiratory exam: Present: rhonchi, decreased breath sounds Cardiovascular Exam: Present: regular rate, normal rhythm GI/Abdominal exam: Present: soft. Absent: tenderness Extremities exam: Present: normal inspection. Absent: pedal edema, calf tenderness Neurological exam: Present: alert Psychiatric exam: Present: normal affect, normal mood Skin exam: Present: normal color 79 year old male with back pain and associated complex cyst over his thoracic spine. Patient is requesting inpatient intervention. -Will plan for surgical excision of cyst tomorrow pending patients clinical course and pulmonary status. Surgery can be performed under local anesthesia with twilight sedation. Recommend against aspiration of the cyst as the cyst will reoccur and continue to be problematic for patient. Plan discussed with patient and he is agreeable. NPO at midnight. AM labs. Alvarado Schmitt DO [facility] [phone]
[2024-09-01 14:11] LABS: INR 1.07 sec (0.93-1.11); Prothrombin Time 12.1 sec (9.9-11.9)
[2024-09-01 16:12] LABS: Glucose,Whole Blood 102 mg/dL (70-110)
[2024-09-01] MEDS: BENZONATATE 100 MG CAP PO PRN (22:13)
[2024-09-02] MEDS: IPRATROPIUM-ALBUTEROL 3 ML NEB INHALATION PRN (00:33)
[2024-09-02 04:08] LABS: Mycoplasma IgG Antibody (EIA) 1.85 INDEX (<=0.90); Mycoplasma IgM Antibody 0.25 INDEX (<=0.90)
[2024-09-02 10:24] LABS: Basophils # (A) 0.01 X 10*3/uL (0.00-0.10); Basophils % (A) 0.1 %; Eosinophils # (A) 0.21 X 10*3/uL (0.04-0.35); Eosinophils % (A) 2.2 %; HCT 43.4 % (39.6-50.0); HGB 13.6 g/dL (13.0-17.0); Lymphocytes # (A) 1.88 X 10*3/uL (0.90-5.00); Lymphocytes % (A) 19.7 %; MCH 30.5 pg (27.0-32.0); MCHC 31.3 g/dL (32.0-37.0); MCV 97.3 FL (80.0-97.0); Mean Platelet Volume 10.3 FL (9.5-12.2); Monocytes # (A) 0.89 X 10*3/uL (0.20-1.00); Monocytes % (A) 9.3 %; NRBC Per 100 WBC 0 X 10*3/uL (0.00-0.01); Neutrophils # (A) 6.51 X 10*3/uL (1.80-7.70); Neutrophils % (A) 68.3 %; Platelet Count 275 X 10*3/uL (140-440); RBC 4.46 X 10*6/uL (4.40-5.60); RDW 15.8 % (11.5-14.5); WBC 9.54 X 10*3/uL (4.50-10.00)
[2024-09-02 10:25] LABS: BUN/Creat Ratio 27.12 Ratio (12.00-20.00); Blood Urea Nitrogen 21.7 mg/dL (9.0-27.0); Calcium 7.4 mg/dL (8.7-10.3); Carbon Dioxide 33.5 mmol/L (21.6-31.8); Chloride 97 mmol/L (96-109); Glucose 94 mg/dL (70-110); Potassium 4.2 mmol/L (3.5-5.5); Sodium 133 mmol/L (135-145)
[2024-09-02 12:05] LABS: INR 1.06 sec (0.93-1.11)
[2024-09-02] MEDS: IV FLUID CONTINUATION 1,000 ML IV ONE (12:58)
[2024-09-02 13:28] LABS: Glucose,Whole Blood 97 mg/dL (70-110)
[2024-09-02] MEDS: ONDANSETRON 4 MG/2 ML VIAL IVP STA (13:29)
--- NOTE | 2024-09-02 14:53 | P.PN ---
Progress Note - Text Progress Note Date: 09/02/24 Patient was pending surgical intervention. Upset that he has been n.p.o. awaiting surgery and states that he is too hungry to wait. Patient refusing surgery secondary to having to remain n.p.o. prior to operation. Will cancel surgery.
--- NOTE | 2024-09-02 15:59 | P.PN ---
Subjective Progress Note Date: 09/02/24 Hospital course: Patient is a very pleasant 79-year-old male with a past medical history of previous heavy tobacco and alcohol use, quitting both nearly 10 years ago but does not follow outpatient with a primary care provider. He presented to the emergency department on 08/29/2024 with a chief complaint of shortness of breath and productive cough. Patient reports the symptoms began about 1 to 2 months ago but have progressively worsened. He reports intermittent fevers, productive cough of yellowishgreenish colored sputum production and states the symptoms worsen with minimal exertion. Per facility, patient underwent evaluation in the emergency department. Vital signs upon arrival show blood pressure 138/100, heart rate 94, respiratory rate 20, temp 97.4 F, and SpO2 100% on high flow nasal cannula at 11 L. EKG completed showing sinus mechanism at 91 bpm Chest x- ray showing multifocal airspace opacities. Labs completed and reviewed. CBC unremarkable. Coagulation profile showing elevated PT of 13.6, INR of 1.3, and D-dimer elevated at 2.23. BMP showing hypercarbia with bicarb of 32. Lactic acid 1.6. Glucose 99. Calcium 8.0. Magnesium 2.1. Liver profile showing elevated alkaline phosphatase of 161. Troponin was 0.028. Albumin was low at 3.0. Corrected calcium 8.3. Troponin 0.028. CTA chest negative for PE showing few scattered calcified granulomas and diffuse traction bronchiectasis with extensive honeycombing throughout lungs scattered subpleural reticulations, scattered interlobular septal thickening with enlarged right hilar lymph node measuring up to 2 cm and precarinal lymph node measuring up to 2.3 cm and additional bilateral hilar and mediastinal lymph nodes. Influenza A, influenza B, RSV, and COVID PCR were negative. Urine Legionella negative. Physical exam: Patient seen and fully evaluated at bedside this morning. He reports his breathing is good on supplemental oxygen. Patient again encouraged to increase activity today. He is awaiting to go down for I&D of cyst later today, RN reports possibly this evening. Patient reports breathing comfortably and currently denies any new needs, complaints, or concerns. Discussed with patient likely discharge home tomorrow with home O2. Vital signs reviewed and stable. General: Nontoxic, no distress and appears stated age. Thin, frail build Derm: Skin warm and dry, normal coloration for ethnicity. 2-3 cm cyst noted on thoracic region of back that is reported as painful upon palpation, no drainage, no surrounding erythema Head: Atraumatic, normocephalic and symmetric. Eyes: EOM's intact, no lid lag, and anicteric sclera Mouth: no lip lesions, mucus membranes moist Cardiovascular: regular rate and rhythm with normal S1S2, no murmur, positive posterior tibial pulses bilaterally, and cap refill < 2 seconds. Lungs: Respirations even, regular, and unlabored on supplemental oxygen. Lungs with bibasilar crackles worse in the left lower lobe. No wheezing, rhonchi or rales noted. Abdominal: soft, nontender to palpation, no guarding, no appreciable organomegaly Ext: ROM intact. No gross muscle atrophy, no edema, no contractures. Clubbing noted to fingers. Neuro: Speech clear, face symmetrical and CN II-XII grossly intact with no noted focal neuro deficits Psych: Alert and oriented to person, place, time, and situation. Appropriate and pleasant affect. Assessment and Plan of Care: Acute hypoxic and hypercarbic respiratory failure, suspect secondary to interstitial lung disease with pulmonary fibrosis History of heavy tobacco use Elevated D-dimer, CTA negative for PE Diffuse hilar and mediastinal lymphadenopathy - Pulmonology following, discussed plan in detail with pulmonary PAST DUE ACCOUNTS CLERK - Oxygenation to be administered and titrated as needed to maintain SPO2 equal to or greater than 90%, wean as patient tolerates and encourage increasing of activity - Telemetry monitoring. - Monitor pulse-oximetry - Duonebs scheduled 4 times daily and as needed for SOB and/or wheezing - Incentive Spirometry - Continue Symbicort 604.5 mcg inhaler 2 puffs twice daily - Awaiting echocardiogram to be completed. - Blood culture showing no growth to date and procalcitonin was negative at less than 0.20.. Back pain, Painful Cyst to thoracic region of back -Soft tissue ultrasound of back revealing a 1.9 cm complex cyst that radiologist reports is amendable to ultrasound-guided fluid aspiration. -Discussed with general surgeon and plan is for incision and drainage of cyst later today. Data and imaging reviewed: -Labs reviewed. Blood culture showing no growth to date. CBC showing resolution of leukocytosis with WBC count of 9.54. BMP showing hyponatremia with sodium of 133, hypercarbia with bicarb of 33.5 and low anion gap of 2.50. Blood glucose 94 - Vital signs reviewed. Blood pressure 116/72, heart rate 78, respiratory rate 18, temp 97.9 F, and SpO2 of 92% on 4 L. CODE STATUS: Full code DVT prophylaxis: Lovenox Anticipated discharge date: Pending clinical course tomorrow. Patient undergoing drainage of cyst later today and plan for discharge home with oxygen tomorrow. Anticipated discharge place: Home with home O2 Patient was seen independently by Nurse Pracitioner. This document was prepared using [employer] dictation software. Please allow for errors in communications media professor, while rare they do occur. Romie Lyman NP rendered care for this patient independently, reviewed the findings and plan as documented in the note above and agree with plan. I did not physically speak with or examine the patient on this date. Objective - Vital Signs Vital signs: Vital Signs Temp 97.9 F 09/02/24 07:46 Pulse 84 09/02/24 08:54 Resp 18 09/02/24 07:46 BP 116/72 09/02/24 07:46 Pulse Ox 92 L 09/02/24 07:46 FiO2 Intake & Output 09/01/24 09/02/24 09/02/24 18:59 06:59 18:59 Intake Total 800 1979 Output Total 400 Balance 800 1580 Intake: Intake, IV Titration 100 Amount Calcium Gluconate in NaCl 100 1 gm In Saline 1 100ml. bag @ 100 mls/hr IVPB ONCE ONE Rx#:[id number] Oral 700 1979 Output: Urine 400 Other: Voiding Method Toilet Toilet Urinal Urinal # Voids 4 3 - Labs CBC & Chem 7: 09/02/24 03:37 09/02/24 03:37 Labs: Abnormal Lab Results - Last 24 Hours (Table) 08/29/24 09/01/24 09/01/24 Range/Units 21:37 04:47 04:47 WBC 12.96 H (4.50-10.00) X 10*3/uL MCHC 31.5 L (32.0-37.0) g/dL RDW 15.7 H (11.5-14.5) % Immature Gran # 0.06 H (0.00-0.04) X 10*3/uL Neutrophils # 9.46 H (1.80-7.70) X 10*3/uL Monocytes # 1.01 H (0.20-1.00) X 10*3/uL PT (9.9-11.9) sec BUN/Creatinine Ratio 31.50 H (12.00-20.00) Ratio Calcium 7.5 L (8.7-10.3) mg/dL Mycoplasma pneumon IgG 1.85 H (<=0.90) INDEX 09/01/24 Range/Units 04:47 WBC (4.50-10.00) X 10*3/uL MCHC (32.0-37.0) g/dL RDW (11.5-14.5) % Immature Gran # (0.00-0.04) X 10*3/uL Neutrophils # (1.80-7.70) X 10*3/uL Monocytes # (0.20-1.00) X 10*3/uL PT 12.1 H (9.9-11.9) sec BUN/Creatinine Ratio (12.00-20.00) Ratio Calcium (8.7-10.3) mg/dL Mycoplasma pneumon IgG (<=0.90) INDEX Microbiology - Last 24 Hours (Table) 08/29/24 21:45 Blood Culture - Preliminary Blood
--- NOTE | 2024-09-02 19:52 | P.PN ---
Subjective Progress Note Date: 09/02/24 On 09/02/2024, patient is being seen for a follow-up. Condition is stable. Denies having any specific complaints. The patient was supposed to have a surgical incision and drainage of a cyst and he was unable to stay n.p.o. and based on that the surgery was canceled. Respiratory status remained stable and the patient currently is on 3 Suboxone by nasal cannula with a pulse ox of 99%. He is CAT scan of the chest that was done on 08/31/2024 shows chronic ILD consistent with IPF/UIP. The patient also has pulmonary arterial distention and the patient has a borderline enlargement of the ascending thoracic aortic dimension. The white cell count at 9.5 with a hemoglobin of 15.6 and a platelet count of 275. BUN is 21 with a creatinine of 0.5. He has chronic metabolic alkalosis with a serum bicarb of 33. Calcium level is at 7.5. Remains on DuoNeb nebulized him as [id number]. Remains on Symbicort. Objective - Vital Signs Vital signs: Vital Signs Temp 97.3 F L 09/02/24 13:10 Pulse 77 09/02/24 13:10 Resp 17 09/02/24 13:10 BP 106/69 09/02/24 13:10 Pulse Ox 100 09/02/24 13:10 FiO2 Intake & Output 09/01/24 09/02/24 09/02/24 18:59 06:59 18:59 Intake Total 800 1979 Output Total 400 Balance 800 1580 Intake: Intake, IV Titration 100 Amount Calcium Gluconate in NaCl 100 1 gm In Saline 1 100ml. bag @ 100 mls/hr IVPB ONCE ONE Rx#:[id number] Oral 700 1979 Output: Urine 400 Other: Voiding Method Toilet Toilet Urinal Urinal # Voids 4 3 - Exam GENERAL EXAM: Alert, pleasant 79-year-old male, resting in bed, on 3 L nasal cannula, comfortable in no apparent distress. HEAD: Normocephalic. EYES: Normal reaction of pupils, equal size. NOSE: Clear with pink turbinates. THROAT: No erythema or exudates. NECK: No masses, no JVD. CHEST: No chest wall deformity. LUNGS: Equal air entry with coarse crackles in the bilateral bases. CVS: S1 and S2 normal with no audible murmur, regular rhythm. ABDOMEN: No hepatosplenomegaly, normal bowel sounds, no guarding or rigidity. SPINE: No scoliosis or deformity. There is a soft tissue mass noted on his back. SKIN: No rashes CENTRAL NERVOUS SYSTEM: No focal deficits, tone is normal in all 4 extremities. EXTREMITIES: There is no peripheral edema. There is significant clubbing, no cyanosis. Peripheral pulses are intact. - Labs CBC & Chem 7: 09/02/24 03:37 09/02/24 03:37 Labs: Abnormal Lab Results - Last 24 Hours (Table) 08/29/24 09/02/24 09/02/24 Range/Units 21:37 03:37 03:37 MCV 97.3 H (80.0-97.0) FL MCHC 31.3 L (32.0-37.0) g/dL RDW 15.8 H (11.5-14.5) % PT 12.0 H (9.9-11.9) sec Sodium (135-145) mmol/L Carbon Dioxide (21.6-31.8) mmol/L Anion Gap (4.00-12.00) mmol/L BUN/Creatinine Ratio (12.00-20.00) Ratio Calcium (8.7-10.3) mg/dL Mycoplasma pneumon IgG 1.85 H (<=0.90) INDEX 09/02/24 Range/Units 03:37 MCV (80.0-97.0) FL MCHC (32.0-37.0) g/dL RDW (11.5-14.5) % PT (9.9-11.9) sec Sodium 133 L (135-145) mmol/L Carbon Dioxide 33.5 H (21.6-31.8) mmol/L Anion Gap 2.50 L (4.00-12.00) mmol/L BUN/Creatinine Ratio 27.12 H (12.00-20.00) Ratio Calcium 7.4 L (8.7-10.3) mg/dL Mycoplasma pneumon IgG (<=0.90) INDEX Microbiology - Last 24 Hours (Table) 08/29/24 21:45 Blood Culture - Preliminary Blood Assessment and Plan Plan: Acute hypoxemic respiratory failure secondary to suspected progressing of int erstitial lung disease/pulmonary fibrosis. Significant clubbing noted of the fingers and toes. High-resolution CT scan of the chest reveals significant interstitial lung disease/pulmonary fibrosis/UIP, currently on 3 liters by nasal cannula Acute exacerbation of suspected chronic obstructive pulmonary disease History of chronic tobacco dependence however quit 10 years ago Poor medical compliance with no primary care provider Plan: Continue same management Ultrasound of the cyst on his back reviewed Plan is for surgical excision, canceled as the patient was unable to stay n.p.o. Echocardiogram pending Continue DuoNeb inhalations Continue Symbicort Titrate down the FiO2 as tolerated May need home oxygen at discharge Increase his activity as tolerated Outpatient PFT may be a good candidate for pirfenidone treatment on outpatient basis as the patient CT scan of the chest is highly suspicious for IPF.
[2024-09-02] MEDS: SODIUM CHLORIDE 0.9% 1,000 ML IV ONE (20:03)
--- NOTE | 2024-09-02 21:37 | XR ---
EXAMINATION TYPE: XR chest 1V portable DATE OF EXAM: 09/02/2024 9:29 PM COMPARISON: Chest x-ray 08/29/2024 , CT 08/31/2024 CLINICAL INDICATION: Male, 79 years old with history of shortness of breath, TECHNIQUE: XR chest 1V portable view(s) obtained. FINDINGS: The heart size is upper limits of normal. The pulmonary vasculature is prominent. Diffuse increased lung markings are present. Correlate for pulmonary edema. Findings appear to be wor sening over the interval. Findings are likely superimposed on pulmonary fibrosis compared to the rec ent CT. IMPRESSION: 1. Clinical correlation for pulmonary edema. Findings can be superimposed on pulmonary fibrosis. Foll ow-up recommended. [facility], , 09/02/2024 9:35 PM
[2024-09-03] MEDS: SODIUM CHLORIDE 0.9% 500 ML 500 ML IV ONE (01:46)
[2024-09-03 08:17] LABS: HCT 38.4 % (39.6-50.0); HGB 11.9 g/dL (13.0-17.0); MCH 30.4 pg (27.0-32.0); Mean Platelet Volume 10.4 FL (9.5-12.2); NRBC Per 100 WBC 0 X 10*3/uL (0.00-0.01); Platelet Count 228 X 10*3/uL (140-440); RBC 3.92 X 10*6/uL (4.40-5.60); RDW 15.8 % (11.5-14.5); WBC 7.53 X 10*3/uL (4.50-10.00)
[2024-09-03 08:30] LABS: Magnesium 1.8 mg/dL (1.5-2.4)
[2024-09-03 08:37] LABS: ALT 22 U/L (10-49); AST 27 U/L (14-35); Albumin 2.5 g/dL (3.8-4.9); Albumin/Globulin Ratio 0.89 Ratio (1.60-3.17); Alkaline Phosphatase 121 U/L (41-126); Blood Urea Nitrogen 24.4 mg/dL (9.0-27.0); Calcium 6.9 mg/dL (8.7-10.3); Carbon Dioxide 32.3 mmol/L (21.6-31.8); Chloride 98 mmol/L (96-109); Globulin 2.8 g/dL (1.6-3.3); Glucose 99 mg/dL (70-110); Potassium 4.5 mmol/L (3.5-5.5); Sodium 135 mmol/L (135-145); Total Bilirubin <0.2 mg/dL (0.3-1.2); Total Protein 5.3 g/dL (6.2-8.2)
--- NOTE | 2024-09-03 14:26 | P.PN ---
Subjective Progress Note Date: 09/03/24 SURGICAL PROGRESS NOTE CHIEF COMPLAINT: Respiratory failure and COPD HISTORY OF PRESENT ILLNESS: Patient has a cyst on his back. He was initially scheduled to have excision of the back cyst yesterday. Patient wanted to eat and did not want to stay n.p.o. for the surgery. Surgery was therefore cancele d. Patient is on 8 L of oxygen. PHYSICAL EXAM: VITAL SIGNS: Reviewed. GENERAL: in no acute distress. SKIN: Cyst over the thoracic spine. Tender with palpation ASSESSMENT: 1. Cyst over thoracic spine PLAN: -Recommend outpatient excision of back cyst - Surgical service will sign off. Please call with any questions or concerns. Physician Loop Tender note has been reviewed by physician. Signing provider agrees with the documented findings, assessment, and plan of care. Attestation Patient seen and examined at bedside. Chief complaint respiratory failure and COPD. Patient continues to have cyst on his back. He is refusing surgery if it is unable to be performed at 7 AM. It is unlikely we will be able to perform this with that time. While the patient is inpatient secondary to the add-on schedule. I did recommend that as it is not urgent to have the cyst removed at this moment, we can plan for outpatient cyst removal with scheduled time of 7:30 AM start. He is agreeable with that plan. Follow-up as outpatient. Daphne Lucero DO Objective - Vital Signs Vital signs: Vital Signs Temp 97.9 F 09/03/24 07:48 Pulse 102 H 09/03/24 08:54 Resp 18 09/03/24 07:48 BP 98/63 09/03/24 07:48 Pulse Ox 96 09/03/24 07:48 FiO2 Intake & Output 09/02/24 09/03/24 09/03/24 18:59 06:59 18:59 Other: Voiding Method Toilet Toilet Urinal Urinal # Voids 1 5 # Bowel Movements 1 - Labs CBC & Chem 7: 09/03/24 04:00 09/03/24 04:00 Labs: Abnormal Lab Results - Last 24 Hours (Table) 09/03/24 09/03/24 Range/Units 04:00 04:00 RBC 3.92 L (4.40-5.60) X 10*6/uL Hgb 11.9 L (13.0-17.0) g/dL Hct 38.4 L (39.6-50.0) % MCV 98.0 H (80.0-97.0) FL MCHC 31.0 L (32.0-37.0) g/dL RDW 15.8 H (11.5-14.5) % Carbon Dioxide 32.3 H (21.6-31.8) mmol/L BUN/Creatinine Ratio 24.40 H (12.00-20.00) Ratio Calcium 6.9 L (8.7-10.3) mg/dL Total Bilirubin <0.2 L (0.3-1.2) mg/dL Total Protein 5.3 L (6.2-8.2) g/dL Albumin 2.5 L (3.8-4.9) g/dL Albumin/Globulin Ratio 0.89 L (1.60-3.17) Ratio
--- NOTE | 2024-09-03 14:34 | P.PN ---
Subjective Progress Note Date: 09/03/24 Hospital course: Patient is a very pleasant 79-year-old male with a past medical history of previous heavy tobacco and alcohol use, quitting both nearly 10 years ago but does not follow outpatient with a primary care provider. He presented to the emergency department on 08/29/2024 with a chief complaint of shortness of breath and productive cough. Patient reports the symptoms began about 1 to 2 months ago but have progressively worsened. He reports intermittent fevers, productive cough of yellowishgreenish colored sputum production and states the symptoms worsen with minimal exertion. Per facility, patient underwent evaluation in the emergency department. Vital signs upon arrival show blood pressure 138/100, heart rate 94, respiratory rate 20, temp 97.4 F, and SpO2 100% on high flow nasal cannula at 11 L. EKG completed showing sinus mechanism at 91 bpm Chest x- ray showing multifocal airspace opacities. Labs completed and reviewed. CBC unremarkable. Coagulation profile showing elevated PT of 13.6, INR of 1.3, and D-dimer elevated at 2.23. BMP showing hypercarbia with bicarb of 32. Lactic acid 1.6. Glucose 99. Calcium 8.0. Magnesium 2.1. Liver profile showing elevated alkaline phosphatase of 161. Troponin was 0.028. Albumin was low at 3.0. Corrected calcium 8.3. Troponin 0.028. CTA chest negative for PE showing few scattered calcified granulomas and diffuse traction bronchiectasis with extensive honeycombing throughout lungs scattered subpleural reticulations, scattered interlobular septal thickening with enlarged right hilar lymph node measuring up to 2 cm and precarinal lymph node measuring up to 2.3 cm and additional bilateral hilar and mediastinal lymph nodes. Influenza A, influenza B, RSV, and COVID PCR were negative. Urine Legionella negative. Physical exam: Patient seen and fully evaluated at bedside this morning. He has had increased oxygen needs over the past 24 hours previously on 3 L currently on 8 L high flow. Blood pressure also running soft at 98/63. Patient asymptomatic denies any dizziness, lightheadedness, chest pain, palpitations, and denies feeling increased shortness of breath despite increased oxygenation needs. Vital signs reviewed and stable. General: Nontoxic, no distress and appears stated age. Thin, frail build Derm: Skin warm and dry, normal coloration for ethnicity. 2-3 cm cyst noted on thoracic region of back that is reported as painful upon palpation, no drainage, no surrounding erythema Head: Atraumatic, normocephalic and symmetric. Eyes: EOM's intact, no lid lag, and anicteric sclera Mouth: no lip lesions, mucus membranes moist Cardiovascular: regular rate and rhythm with normal S1S2, no murmur, positive posterior tibial pulses bilaterally, and cap refill < 2 seconds. Lungs: Respirations even, regular, and unlabored on supplemental oxygen. Lungs with bibasilar crackles worse in the left lower lobe. No wheezing, rhonchi or rales noted. Abdominal: soft, nontender to palpation, no guarding, no appreciable organomeg uvaldo Ext: ROM intact. No gross muscle atrophy, no edema, no contractures. Clubbing noted to fingers. Neuro: Speech clear, face symmetrical and CN II-XII grossly intact with no noted focal neuro deficits Psych: Alert and oriented to person, place, time, and situation. Appropriate and pleasant affect. Assessment and Plan of Care: Acute hypoxic and hypercarbic respiratory failure, suspect secondary to interstitial lung disease with pulmonary fibrosis History of heavy tobacco use Elevated D-dimer, CTA negative for PE Diffuse hilar and mediastinal lymphadenopathy - Pulmonology following, reviewed documentation in chart - Oxygenation to be administered and titrated as needed to maintain SPO2 equal to or greater than 90%, wean as patient tolerates and encourage increasing of activity - Telemetry monitoring. - Monitor pulse-oximetry - Duonebs scheduled 4 times daily and as needed for SOB and/or wheezing - Incentive Spirometry - Continue Symbicort 604.5 mcg inhaler 2 puffs twice daily - Awaiting echocardiogram to be completed. - Blood culture showing no growth to date and procalcitonin was negative at less than 0.20.. Repeat chest x-ray completed overnight and reviewed showing pulmonary edema superimposed on pulmonary fibrosis. Back pain, Painful Cyst to thoracic region of back -Soft tissue ultrasound of back revealing a 1.9 cm complex cyst that radiologist reports is amendable to ultrasound-guided fluid aspiration. -General Surgery was following planning for I&D on 09/02/2024, however patient was reportedly upset about being n.p.o. prior to surgical procedure and refused surgical I&D stating he was too hungry to wait. Surgery team signing off at this time recommending patient may follow-up outpatient for procedure. Data and imaging reviewed: -Labs reviewed. Blood culture showing no growth to date. CBC showing macrocytic anemia with hemoglobin of 11.9 and MCV of 98.0. BMP showing hypercarbia with bicarb of 32.3. Blood glucose 99. Magnesium 6.9 with albumin of 2.5 resulting in corrected calcium of 8.1. And magnesium 1.8. - Vital signs reviewed. Blood pressure soft 98/63, heart rate 86, respiratory rate 18, temp 97.9 F, and SpO2 of 96% on 8 L.. Repeat chest x-ray completed overnight and reviewed showing pulmonary edema superimposed on pulmonary fibrosis. CODE STATUS: Full code DVT prophylaxis: Lovenox Anticipated discharge date: Pending clinical course Anticipated discharge place: Home with home O2 Patient was seen independently by Nurse Pracitioner. This document was prepared using [employer] dictation software. Please allow for errors in nurses' aide, while rare they do occur. Romie Lyman NP rendered care for this patient independently, reviewed the findings and plan as documented in the note above and agree with plan. I did not physically speak with or examine the patient on this date. Objective - Vital Signs Vital signs: Vital Signs Temp 97.9 F 09/03/24 07:48 Pulse 100 09/03/24 08:44 Resp 18 09/03/24 07:48 BP 98/63 09/03/24 07:48 Pulse Ox 96 09/03/24 07:48 FiO2 Intake & Output 09/02/24 09/03/24 09/03/24 18:59 06:59 18:59 Other: Voiding Method Toilet Urinal # Voids 1 5 # Bowel Movements 1 - Labs CBC & Chem 7: 09/03/24 04:00 09/03/24 04:00 Labs: Abnormal Lab Results - Last 24 Hours (Table) 09/02/24 09/02/24 09/02/24 Range/Units 03:37 03:37 03:37 RBC (4.40-5.60) X 10*6/uL Hgb (13.0-17.0) g/dL Hct (39.6-50.0) % MCV 97.3 H (80.0-97.0) FL MCHC 31.3 L (32.0-37.0) g/dL RDW 15.8 H (11.5-14.5) % PT 12.0 H (9.9-11.9) sec Sodium 133 L (135-145) mmol/L Carbon Dioxide 33.5 H (21.6-31.8) mmol/L Anion Gap 2.50 L (4.00-12.00) mmol/L BUN/Creatinine Ratio 27.12 H (12.00-20.00) Ratio Calcium 7.4 L (8.7-10.3) mg/dL Total Bilirubin (0.3-1.2) mg/dL Total Protein (6.2-8.2) g/dL Albumin (3.8-4.9) g/dL Albumin/Globulin Ratio (1.60-3.17) Ratio 09/03/24 09/03/24 Range/Units 04:00 04:00 RBC 3.92 L (4.40-5.60) X 10*6/uL Hgb 11.9 L (13.0-17.0) g/dL Hct 38.4 L (39.6-50.0) % MCV 98.0 H (80.0-97.0) FL MCHC 31.0 L (32.0-37.0) g/dL RDW 15.8 H (11.5-14.5) % PT (9.9-11.9) sec Sodium (135-145) mmol/L Carbon Dioxide 32.3 H (21.6-31.8) mmol/L Anion Gap (4.00-12.00) mmol/L BUN/Creatinine Ratio 24.40 H (12.00-20.00) Ratio Calcium 6.9 L (8.7-10.3) mg/dL Total Bilirubin <0.2 L (0.3-1.2) mg/dL Total Protein 5.3 L (6.2-8.2) g/dL Albumin 2.5 L (3.8-4.9) g/dL Albumin/Globulin Ratio 0.89 L (1.60-3.17) Ratio Microbiology - Last 24 Hours (Table) 08/29/24 21:45 Blood Culture - Preliminary Blood
--- NOTE | 2024-09-03 14:38 | CA ---
Transthoracic Echo Report Name: Chalo Seth Age: 79 Gender: M : 1945 Exam Date: 09/03/2024 09:24 Exam Location: [facility] Ht (in): 70 Wt (lb): 150 Ordering Physician: Eliud Lopez MD Attending/Referring Phys: Account Resolution Analyst Amparo Osborne RDCS Procedure CPT: Indications: hypoxic with signs of pulmonary HTN Cardiac Hx: Technical Quality: Fair Contrast 1: Total Dose (mL): Contrast 2: Total Dose (mL): MEASUREMENTS (Male / Female) Normal Values 2D ECHO LV Diastolic Diameter PLAX 3.9 cm 4.2 - 5.9 / 3.9 - 5.3 cm LV Systolic Diameter PLAX 2.2 cm IVS Diastolic Thickness 1.0 cm 0.6 - 1.0 / 0.6 - 0.9 cm LVPW Diastolic Thickness 1.1 cm 0.6 - 1.0 / 0.6 - 0.9 cm LV Relative Wall Thickness 0.5 RV Internal Dim ED PLAX 4.0 cm LA Systolic Diameter LX 3.5 cm 3.0 - 4.0 / 2.7 - 3.8 cm LV Diastolic Volume MOD 4C 45.6 cm??? LV Systolic Volume MOD 4C 13.2 cm??? LV Ejection Fraction MOD 4C 71.2 % LV Cardiac Index MOD 4C 1366.3 cm???/min???m??? LV Diastolic Length 4C 7.3 cm LV Systolic Length 4C 5.0 cm M-MODE Aortic Root Diameter MM 3.9 cm AV Cusp Separation MM 2.0 cm DOPPLER MV Area PHT 2.5 cm??? Mitral E Point Velocity 48.2 cm/s Mitral A Point Velocity 62.6 cm/s Mitral E to A Ratio 0.8 MV Deceleration Time 305.8 ms TR Peak Velocity 375.0 cm/s TR Peak Gradient 56.3 mmHg Right Ventricular Systolic Press 61.7 mmHg FINDINGS Left Ventricle Left ventricular ejection fraction is estimated at 60-65%. Left ventricular cavity size normal. Left ventricular wall thickness normal. Flattened septum in systole consistent with right ventricle pressure overload. Right Ventricle Severe right ventricular dilatation. Severe pulmonary hypertension. Right ventricular hypokinesis. Right Atrium Mild right atrial dilatation. Left Atrium Mild left atrial dilatation. Mitral Valve Mitral valve thickened. Mild mitral regurgitation. No mitral stenosis. Aortic Valve Trileaflet aortic valve. No aortic stenosis. Trace aortic regurgitation. Tricuspid Valve Structurally normal tricuspid valve. Moderate tricuspid regurgitation. No tricuspid stenosis. Pulmonic Valve Structurally normal pulmonic valve. Trace pulmonic regurgitation. No pulmonic stenosis. Pericardium No pericardial or pleural effusion. Aorta Mild aortic dilatation at the level of the sinuses of valsalva (root). CONCLUSIONS Normal LV size and systolic function with mild concentric LVH. Severe dilation of right ventricle with flattening of interventricular septum suggestive of volume and pressure overload of right ventricle with significant pulmonary hypertension and pressure of about 60 mmHg. Mild biatrial enlargement. Mitral regurgitation of a mild degree moderate tricuspid regurgitation trivial aortic insufficiency no pericardial effusion prominent aortic root Previewed by: Dr. Moo Marshall MD (Electronically Signed) Final Date: 03 September 2024 14:37
--- NOTE | 2024-09-03 16:00 | P.PN ---
Subjective Progress Note Date: 09/03/24 On 09/02/2024, patient is being seen for a follow-up. Condition is stable. Denies having any specific complaints. The patient was supposed to have a surgical incision and drainage of a cyst and he was unable to stay n.p.o. and based on that the surgery was canceled. Respiratory status remained stable and the patient currently is on 3 Suboxone by nasal cannula with a pulse ox of 99%. He is CAT scan of the chest that was done on 08/31/2024 shows chronic ILD consistent with IPF/UIP. The patient also has pulmonary arterial distention and the patient has a borderline enlargement of the ascending thoracic aortic dimension. The white cell count at 9.5 with a hemoglobin of 15.6 and a platelet count of 275. BUN is 21 with a creatinine of 0.5. He has chronic metabolic alkalosis with a serum bicarb of 33. Calcium level is at 7.5. Remains on DuoNeb nebulized him as [id number]. Remains on Symbicort. On 09/03/2024, patient is being seen for a follow-up. The cyst on his back has not been drained and this will be drained at a later stage on outpatient basis. Meanwhile, the patient remains on Symbicort and DuoNeb nebulizer treatments [id number]. Oxygenation is stable and the patient is currently on 8 L of O2 nasal cannula with a pulse ox of 95%. Chest x-ray from 09/02/2024 showed chronic pulmonary fibrosis. And an echocardiogram was also done today and the patient has a preserved LV function with an ejection fraction of 60 to 65%, patient also has normal LV function with mild concentric LVH, there is severe dilatation of the right ventricle with flattening of the interventricular septum suggestive of pulmonary hypertension and estimated PA pressure is around 60 mmHg. There is also mild degree to moderate degree of tricuspid regurgitation and trivial aortic insufficiency. Labs from today shows a white cell count of 7.5, hemoglobin 11.9 and a platelet count of 228. Electrolytes are all stable. BUN is 24 with a creatinine of 1. The patient's proBNP level at time of admission was 6410. CT of the chest was done on 08/29/2024 and shows no evidence of any pulmonary embolism. The patient had extensive fibrotic changes and honeycombing throughout the lung lopez especially in the lung bases with some background emphysema. Obviously, the patient has advanced lung disease. Objective - Vital Signs Vital signs: Vital Signs Temp 97.9 F 09/03/24 07:48 Pulse 100 09/03/24 12:49 Resp 18 09/03/24 07:48 BP 98/63 09/03/24 07:48 Pulse Ox 96 09/03/24 07:48 FiO2 Intake & Output 09/02/24 09/03/24 09/03/24 18:59 06:59 18:59 Other: Voiding Method Toilet Toilet Urinal Urinal # Voids 1 5 # Bowel Movements 1 - Exam GENERAL EXAM: Alert, pleasant 79-year-old male, resting in bed, on 8 L nasal cannula, comfortable in no apparent distress. HEAD: Normocephalic. EYES: Normal reaction of pupils, equal size. NOSE: Clear with pink turbinates. THROAT: No erythema or exudates. NECK: No masses, no JVD. CHEST: No chest wall deformity. LUNGS: Equal air entry with coarse crackles in the bilateral bases. CVS: S1 and S2 normal with no audible murmur, regular rhythm. ABDOMEN: No hepatosplenomegaly, normal bowel sounds, no guarding or rigidity. SPINE: No scoliosis or deformity. There is a soft tissue mass noted on his back. SKIN: No rashes CENTRAL NERVOUS SYSTEM: No focal deficits, tone is normal in all 4 extremities. EXTREMITIES: There is no peripheral edema. There is significant clubbing, no cyanosis. Peripheral pulses are intact. - Labs CBC & Chem 7: 09/03/24 04:00 09/03/24 04:00 Labs: Abnormal Lab Results - Last 24 Hours (Table) 09/03/24 09/03/24 Range/Units 04:00 04:00 RBC 3.92 L (4.40-5.60) X 10*6/uL Hgb 11.9 L (13.0-17.0) g/dL Hct 38.4 L (39.6-50.0) % MCV 98.0 H (80.0-97.0) FL MCHC 31.0 L (32.0-37.0) g/dL RDW 15.8 H (11.5-14.5) % Carbon Dioxide 32.3 H (21.6-31.8) mmol/L BUN/Creatinine Ratio 24.40 H (12.00-20.00) Ratio Calcium 6.9 L (8.7-10.3) mg/dL Total Bilirubin <0.2 L (0.3-1.2) mg/dL Total Protein 5.3 L (6.2-8.2) g/dL Albumin 2.5 L (3.8-4.9) g/dL Albumin/Globulin Ratio 0.89 L (1.60-3.17) Ratio Assessment and Plan Plan: Acute hypoxemic respiratory failure secondary to suspected progressing of interstitial lung disease/pulmonary fibrosis. Significant clubbing noted of the fingers and toes. High-resolution CT scan of the chest reveals significant interstitial lung disease/pulmonary fibrosis/UIP, in addition to some background COPD. The fibrotic changes are extensive in the lung bases with extensive honeycombing Acute on chronic hypoxic respiratory failure, oxygenation has gotten worse and the patient is currently on 8 L of O2 nasal cannula Severe pulm hypertension secondary chronic lung disease and chronic hypoxemia. The patient has WHO group 3 pulmonary pretension. Acute exacerbation of suspected chronic obstructive pulmonary disease History of chronic tobacco dependence however quit 10 years ago Poor medical compliance with no primary care provider Back cyst Plan: Continue DuoNeb inhalations Continue Symbicort Start Lasix 20 mg IV every 12 hours Titrate down the FiO2 as tolerated, currently on 8 L of O2 nasal cannula Will need home O2 at the time of discharge Increase his activity as tolerated Outpatient PFT may be a good candidate for pirfenidone treatment on outpatient basis as the patient CT scan of the chest is highly suspicious for IPF.
[2024-09-03] MEDS: FUROSEMIDE 10 MG/ML 2 ML VIAL IV SCH (20:04)
--- NOTE | 2024-09-04 16:06 | P.PN ---
Subjective Progress Note Date: 09/04/24 Hospital course: Patient is a very pleasant 79-year-old male with a past medical history of previous heavy tobacco and alcohol use, quitting both nearly 10 years ago but does not follow outpatient with a primary care provider. He presented to the emergency department on 08/29/2024 with a chief complaint of shortness of breath and productive cough. Patient reports the symptoms began about 1 to 2 months ago but have progressively worsened. He reports intermittent fevers, productive cough of yellowishgreenish colored sputum production and states the symptoms worsen with minimal exertion. Per facility, patient underwent evaluation in the emergency department. Vital signs upon arrival show blood pressure 138/100, heart rate 94, respiratory rate 20, temp 97.4 F, and SpO2 100% on high flow nasal cannula at 11 L. EKG completed showing sinus mechanism at 91 bpm Chest x- ray showing multifocal airspace opacities. Labs completed and reviewed. CBC unremarkable. Coagulation profile showing elevated PT of 13.6, INR of 1.3, and D-dimer elevated at 2.23. BMP showing hypercarbia with bicarb of 32. Lactic acid 1.6. Glucose 99. Calcium 8.0. Magnesium 2.1. Liver profile showing elevated alkaline phosphatase of 161. Troponin was 0.028. Albumin was low at 3.0. Corrected calcium 8.3. Troponin 0.028. CTA chest negative for PE showing few scattered calcified granulomas and diffuse traction bronchiectasis with extensive honeycombing throughout lungs scattered subpleural reticulations, scattered interlobular septal thickening with enlarged right hilar lymph node measuring up to 2 cm and precarinal lymph node measuring up to 2.3 cm and additional bilateral hilar and mediastinal lymph nodes. Influenza A, influenza B, RSV, and COVID PCR were negative. Urine Legionella negative.Repeat chest x- ray completed 09/02/2024 and reviewed showing pulmonary edema superimposed on pulmonary fibrosis. Echocardiogram completed showing a preserved EF of 60 to 65% with severe dilation of right ventricle with flattening of interventricular septum suggestive of volume and pressure overload of right ventricle with significant pulmonary hypertension, mild biatrial enlargement, mitral regurgitation of a mild degree and moderate tricuspid regurgitation with trivial aortic insufficiency. Physical exam: Patient seen and fully evaluated at bedside this morning. He remains on high flow nasal cannula at 6 L O2. Patient sitting up in chair at this time. He was just placed back on nasal cannula as patient removed it himself and desaturated down to 78%. At time of assessment patient was able to increase oxygen sats to 91% after a few minutes of resting. Patient states he is ready to go home, libertad hernandez was informed that we need to wean down oxygen a bit prior to safe discharge. Patient was updated the plan is for discharge home on home oxygen. Patient denies any other needs, questions, concerns, or complaints at this time. Patient stated he wanted his cyst surgery done before discharge and was informed that general surgery stated he will no need to follow-up outpatient. Vital signs reviewed and stable. General: Nontoxic, no distress and appears stated age. Thin, frail build Derm: Skin warm and dry, normal coloration for ethnicity. 2-3 cm cyst noted on thoracic region of back that is reported as painful upon palpation, no drainage, no surrounding erythema Head: Atraumatic, normocephalic and symmetric. Eyes: EOM's intact, no lid lag, and anicteric sclera Mouth: no lip lesions, mucus membranes moist Cardiovascular: regular rate and rhythm with normal S1S2, no murmur, positive posterior tibial pulses bilaterally, and cap refill < 2 seconds. Lungs: Respirations even, regular, and unlabored on supplemental oxygen. Lungs with bibasilar crackles worse in the left lower lobe. No wheezing, rhonchi or rales noted. Abdominal: soft, nontender to palpation, no guarding, no appreciable organomegaly Ext: ROM intact. No gross muscle atrophy, no edema, no contractures. Clubbing noted to fingers. Neuro: Speech clear, face symmetrical and CN II-XII grossly intact with no noted focal neuro deficits Psych: Alert and oriented to person, place, time, and situation. Appropriate and pleasant affect. Assessment and Plan of Care: Acute hypoxic and hypercarbic respiratory failure, suspect secondary to interstitial lung disease with pulmonary fibrosis History of heavy tobacco use Elevated D-dimer, CTA negative for PE Diffuse hilar and mediastinal lymphadenopathy - Pulmonology following, reviewed documentation in chart - Oxygenation to be administered and titrated as needed to maintain SPO2 equal to or greater than 90%, wean as patient tolerates and encourage increasing of activity - Telemetry monitoring. - Monitor pulse-oximetry - Duonebs scheduled 4 times daily and as needed for SOB and/or wheezing - Incentive Spirometry - Continue Symbicort 604.5 mcg inhaler 2 puffs twice daily - Awaiting echocardiogram to be completed. - Blood culture showing no growth to date and procalcitonin was negative at less than 0.20.. -Echocardiogram completed showing a preserved EF of 60 to 65% with severe dilation of right ventricle with flattening of interventricular septum suggestive of volume and pressure overload of right ventricle with significant pulmonary hypertension, mild biatrial enlargement, mitral regurgitation of a mild degree and moderate tricuspid regurgitation with trivial aortic insufficiency. Back pain, Painful Cyst to thoracic region of back -Soft tissue ultrasound of back revealing a 1.9 cm complex cyst that radiologist reports is amendable to ultrasound-guided fluid aspiration. -General Surgery was following planning for I&D on 09/02/2024, however patient was reportedly upset about being n.p.o. prior to surgical procedure and refused surgical I&D stating he was too hungry to wait. Surgery team signing off at this time recommending patient may follow-up outpatient for procedure. Data and imaging reviewed: -Labs reviewed. Blood culture showing no growth to date. CBC showing macrocytic anemia with hemoglobin of 11.9 and MCV of 98.0. BMP showing hypercarbia with bicarb of 32.3. Blood glucose 99. Magnesium 6.9 with albumin of 2.5 resulting in corrected calcium of 8.1. And magnesium 1.8. - Vital signs reviewed. Blood pressure 117/66, heart rate 69, respiratory rate 17, temp 98.0 F, and SpO2 of 98% on 6 L Echocardiogram completed showing a preserved EF of 60 to 65% with severe dilation of right ventricle with flattening of interventricular septum suggesti ve of volume and pressure overload of right ventricle with significant pulmonary hypertension, mild biatrial enlargement, mitral regurgitation of a mild degree and moderate tricuspid regurgitation with trivial aortic insufficiency.. CODE STATUS: Full code DVT prophylaxis: Lovenox Anticipated discharge date: Pending clinical course Anticipated discharge place: Home with home O2 Patient was seen independently by Nurse Pracitioner. This document was prepared using [employer] dictation software. Please allow for errors in logistics and planning manager, while rare they do occur. Romie Lyman NP rendered care for this patient independently, reviewed the findings and plan as documented in the note above and agree with plan. I did not physically speak with or examine the patient on this date. Objective - Vital Signs Vital signs: Vital Signs Temp 98.0 F 09/04/24 07:10 Pulse 88 09/04/24 08:34 Resp 17 09/04/24 07:10 BP 117/66 09/04/24 07:10 Pulse Ox 98 09/04/24 07:10 FiO2 Intake & Output 09/03/24 09/04/24 09/04/24 18:59 06:59 18:59 Output Total 2175 330 Balance -2175 -330 Output: Urine 2175 330 Other: Voiding Method Toilet Urinal Urinal # Voids 4 - Labs CBC & Chem 7: 09/03/24 04:00 09/03/24 04:00 Labs: Microbiology - Last 24 Hours (Table) 08/29/24 21:45 Blood Culture - Final Blood
--- NOTE | 2024-09-04 21:36 | P.PN ---
Subjective Progress Note Date: 09/04/24 On 09/02/2024, patient is being seen for a follow-up. Condition is stable. Denies having any specific complaints. The patient was supposed to have a surgical incision and drainage of a cyst and he was unable to stay n.p.o. and based on that the surgery was canceled. Respiratory status remained stable and the patient currently is on 3 Suboxone by nasal cannula with a pulse ox of 99%. He is CAT scan of the chest that was done on 08/31/2024 shows chronic ILD consistent with IPF/UIP. The patient also has pulmonary arterial distention and the patient has a borderline enlargement of the ascending thoracic aortic dimension. The white cell count at 9.5 with a hemoglobin of 15.6 and a platelet count of 275. BUN is 21 with a creatinine of 0.5. He has chronic metabolic alkalosis with a serum bicarb of 33. Calcium level is at 7.5. Remains on DuoNeb nebulized him as [id number]. Remains on Symbicort. On 09/03/2024, patient is being seen for a follow-up. The cyst on his back has not been drained and this will be drained at a later stage on outpatient basis. Meanwhile, the patient remains on Symbicort and DuoNeb nebulizer treatments [id number]. Oxygenation is stable and the patient is currently on 8 L of O2 nasal cannula with a pulse ox of 95%. Chest x-ray from 09/02/2024 showed chronic pulmonary fibrosis. And an echocardiogram was also done today and the patient has a preserved LV function with an ejection fraction of 60 to 65%, patient also has normal LV function with mild concentric LVH, there is severe dilatation of the right ventricle with flattening of the interventricular septum suggestive of pulmonary hypertension and estimated PA pressure is around 60 mmHg. There is also mild degree to moderate degree of tricuspid regurgitation and trivial aortic insufficiency. Labs from today shows a white cell count of 7.5, hemoglobin 11.9 and a platelet count of 228. Electrolytes are all stable. BUN is 24 with a creatinine of 1. The patient's proBNP level at time of admission was 6410. CT of the chest was done on 08/29/2024 and shows no evidence of any pulmonary embolism. The patient had extensive fibrotic changes and honeycombing throughout the lung lopez especially in the lung bases with some background emphysema. Obviously, the patient has advanced lung disease. On 09/04/2024, the patient is stable resting comfortably in bed with no history of pulmonary fibrosis. Currently on 6 L of oxygen by nasal cannula with a pulse ox of 96%. No new complaints for now. Resting comfortably in bed. No cough or sputum production. No chest tightness or wheezing. The white cell count 7.4 with a hemoglobin of 0.9 and a platelet count of 228. BUN is 24 with a creatinine of 1. Electrolytes are normal. No altered mentation. No other specific events overnight. The patient has significant pulmonary pretension related to chronic hypoxemia. The patient will need home O2 and this should be delivered to him at time of discharge. Blood culture showing no growth to date and procalcitonin was negative at less than 0.20.. -Echocardiogram completed showing a preserved EF of 60 to 65% with severe dilation of right ventricle with flattening of interventricular septum suggestive of volume and pressure overload of right ventricle with significant pulmonary hypertension, mild biatrial enlargement, mitral regurgitation of a mild degree and moderate tricuspid regurgitation with trivial aortic insufficiency. The patient remains on IV Lasix and the patient is negative fluid balance of at least 2 L over the past 24 hours. Renal function remains stable. Objective - Vital Signs Vital signs: Vital Signs Temp 97.7 F 09/04/24 14:00 Pulse 74 09/04/24 14:00 Resp 18 09/04/24 14:00 BP 136/75 09/04/24 14:00 Pulse Ox 98 09/04/24 14:00 FiO2 Intake & Output 09/03/24 09/04/24 09/04/24 18:59 06:59 18:59 Output Total 2175 330 Balance -2175 -330 Output: Urine 2175 330 Other: Voiding Method Toilet Urinal Urinal # Voids 4 - Exam GENERAL EXAM: Alert, pleasant 79-year-old male, resting in bed, on 6 L nasal cannula, comfortable in no apparent distress. HEAD: Normocephalic. EYES: Normal reaction of pupils, equal size. NOSE: Clear with pink turbinates. THROAT: No erythema or exudates. NECK: No masses, no JVD. CHEST: No chest wall deformity. LUNGS: Equal air entry with coarse crackles in the bilateral bases. CVS: S1 and S2 normal with no audible murmur, regular rhythm. ABDOMEN: No hepatosplenomegaly, normal bowel sounds, no guarding or rigidity. SPINE: No scoliosis or deformity. There is a soft tissue mass noted on his back. SKIN: No rashes CENTRAL NERVOUS SYSTEM: No focal deficits, tone is normal in all 4 extremities. EXTREMITIES: There is no peripheral edema. There is significant clubbing, no cyanosis. Peripheral pulses are intact. - Labs CBC & Chem 7: 09/03/24 04:00 09/03/24 04:00 Labs: Microbiology - Last 24 Hours (Table) 08/29/24 21:45 Blood Culture - Final Blood Assessment and Plan Plan: Acute hypoxemic respiratory failure secondary to suspected progressing of interstitial lung disease/pulmonary fibrosis. Significant clubbing noted of the fingers and toes. High-resolution CT scan of the chest reveals significant interstitial lung disease/pulmonary fibrosis/UIP, in addition to some background COPD. The fibrotic changes are extensive in the lung bases with extensive honeycombing Acute on chronic hypoxic respiratory failure, oxygenation has gotten worse and the patient is currently on 6 L of O2 nasal cannula Severe pulm hypertension secondary chronic lung disease and chronic hypoxemia. The patient has WHO group 3 pulmonary pretension. Acute exacerbation of suspected chronic obstructive pulmonary disease History of chronic tobacco dependence however quit 10 years ago Poor medical compliance with no primary care provider Back cyst Plan: Condition remains stable Continue DuoNeb inhalations Continue Symbicort Continue Lasix 20 mg IV every 12 hours Titrate down the FiO2 as tolerated, currently on 6 L of O2 nasal cannula Will need home O2 at the time of discharge Increase his activity as tolerated Outpatient PFT may be a good candidate for pirfenidone treatment on outpatient basis as the patient CT scan of the chest is highly suspicious for IPF.
[2024-09-05 06:11] LABS: Glucose,Whole Blood 98 mg/dL (70-110)
[2024-09-05 08:37] VITALS: BMI 21.5
--- NOTE | 2024-09-05 14:42 | P.PN ---
Subjective Progress Note Date: 09/05/24 Subjective: Patient seen and examined at bedside. Overnight patient was hallucinating and agitated. Per nursing, patient was also asking for knives. Patient is a war), and has history of PTSD and prior psychotic episodes. He was previously treated by [facility]. Currently lives alone at home without any assistance. Pertinent positives and negatives as discussed above, a complete review of systems was performed and all other systems are negative. Vitals Signs Reviewed. General: Nontoxic, no distress, appears at stated age Derm: Warm, dry, 2-3 cm cyst noted on thoracic region of back that is reported as painful upon palpation, no drainage, no surrounding erythema Head: Atraumatic, normocephalic, symmetric Eyes: EOMI, no lid lag, anicteric sclera Mouth: No lip lesion, mucus membranes moist Cardiovascular: S1S2 reg, no murmur Lungs: Bilateral rales, no accessory muscle use Supplemental oxygen, chronically ill-appearing Abdominal: Soft, nontender to palpation, no guarding, no appreciable organomegaly Ext: No gross muscle atrophy, no edema, no contractures Neuro: CN II-XI grossly intact, no focal neuro deficits Psych: Alert, oriented, tangential speech Data Reviewed Today: Pertinent Labs: Blood sugar 98 Imaging: Echocardiogram shows normal LV systolic function, severe pulmonary hypertension Assessment and Plan: Active: Acute hypoxic respiratory failure, likely secondary to interstitial lung disease History of nicotine dependence Diffuse hilar and mediastinal lymphadenopathy Severe pulmonary hypertension - Pulmonology following, patient kept on Lasix 20 IV every 12 hours, monitor electrolytes - Also on Symbicort twice daily, DuoNebs 4 times daily, every 2 hours as needed - Continue to wean oxygen Back pain Cyst - Surgery following, patient refusing I&D, will need outpatient follow-up History of PTSD History of psychosis - Psychiatry consulted DVT ppx: Lovenox Code status: Full code Anticipated discharge place: Pending clinical course Anticipated discharge time: Pending clinical course Objective - Vital Signs Vital signs: Vital Signs Temp 98.1 F 09/05/24 13:54 Pulse 89 09/05/24 13:54 Resp 18 09/05/24 13:54 BP 121/72 09/05/24 13:54 Pulse Ox 91 L 09/05/24 13:54 FiO2 Intake & Output 09/04/24 09/05/24 09/05/24 18:59 06:59 18:59 Output Total 950 1000 Balance -950 -1000 Weight 68.039 kg Output: Urine 950 1000 Other: Voiding Method Urinal # Voids 6 1 # Bowel Movements 2 2 - Labs CBC & Chem 7: 09/03/24 04:00 09/03/24 04:00
[2024-09-05] MEDS: ZOLPIDEM 5 MG TAB PO PRN (21:53)
--- NOTE | 2024-09-05 22:44 | P.PN ---
Subjective Progress Note Date: 09/05/24 On 09/02/2024, patient is being seen for a follow-up. Condition is stable. Denies having any specific complaints. The patient was supposed to have a surgical incision and drainage of a cyst and he was unable to stay n.p.o. and based on that the surgery was canceled. Respiratory status remained stable and the patient currently is on 3 Suboxone by nasal cannula with a pulse ox of 99%. He is CAT scan of the chest that was done on 08/31/2024 shows chronic ILD consistent with IPF/UIP. The patient also has pulmonary arterial distention and the patient has a borderline enlargement of the ascending thoracic aortic dimension. The white cell count at 9.5 with a hemoglobin of 15.6 and a platelet count of 275. BUN is 21 with a creatinine of 0.5. He has chronic metabolic alkalosis with a serum bicarb of 33. Calcium level is at 7.5. Remains on DuoNeb nebulized him as [id number]. Remains on Symbicort. On 09/03/2024, patient is being seen for a follow-up. The cyst on his back has not been drained and this will be drained at a later stage on outpatient basis. Meanwhile, the patient remains on Symbicort and DuoNeb nebulizer treatments [id number]. Oxygenation is stable and the patient is currently on 8 L of O2 nasal cannula with a pulse ox of 95%. Chest x-ray from 09/02/2024 showed chronic pulmonary fibrosis. And an echocardiogram was also done today and the patient has a preserved LV function with an ejection fraction of 60 to 65%, patient also has normal LV function with mild concentric LVH, there is severe dilatation of the right ventricle with flattening of the interventricular septum suggestive of pulmonary hypertension and estimated PA pressure is around 60 mmHg. There is also mild degree to moderate degree of tricuspid regurgitation and trivial aortic insufficiency. Labs from today shows a white cell count of 7.5, hemoglobin 11.9 and a platelet count of 228. Electrolytes are all stable. BUN is 24 with a creatinine of 1. The patient's proBNP level at time of admission was 6410. CT of the chest was done on 08/29/2024 and shows no evidence of any pulmonary embolism. The patient had extensive fibrotic changes and honeycombing throughout the lung lopez especially in the lung bases with some background emphysema. Obviously, the patient has advanced lung disease. On 09/04/2024, the patient is stable resting comfortably in bed with no history of pulmonary fibrosis. Currently on 6 L of oxygen by nasal cannula with a pulse ox of 96%. No new complaints for now. Resting comfortably in bed. No cough or sputum production. No chest tightness or wheezing. The white cell count 7.4 with a hemoglobin of 0.9 and a platelet count of 228. BUN is 24 with a creatinine of 1. Electrolytes are normal. No altered mentation. No other specific events overnight. The patient has significant pulmonary pretension related to chronic hypoxemia. The patient will need home O2 and this should be delivered to him at time of discharge. Blood culture showing no growth to date and procalcitonin was negative at less than 0.20.. -Echocardiogram completed showing a preserved EF of 60 to 65% with severe dilation of right ventricle with flattening of interventricular septum suggestive of volume and pressure overload of right ventricle with significant pulmonary hypertension, mild biatrial enlargement, mitral regurgitation of a mild degree and moderate tricuspid regurgitation with trivial aortic insufficiency. The patient remains on IV Lasix and the patient is negative fluid balance of at least 2 L over the past 24 hours. Renal function remains stable. On 09/05/2024, the patient is being seen for a follow-up. This is a case of pulmonary fibrosis chronic hypoxic story failure and the patient has chronic pulmonary hypertension related to chronic hypoxemia. The patient is currently on 5 L of oxygen by nasal cannula with a pulse ox of 93%. The patient is still on IV Lasix. The patient is diuresing well and the patient remains a negative fluid balance of 1.9 L over the past 24 hours. No new labs are available from today. He has no specific complaints. Will need home O2. The patient is occasionally having hallucination and agitation and is mainly regarding overnight. He has previous history of PTSD and previous history of psychotic episodes. He has been treated through the [facility]. The back cyst will be deferred to a later stage for surgical excision. Objective - Vital Signs Vital signs: Vital Signs Temp 97.9 F 09/05/24 07:37 Pulse 88 09/05/24 11:49 Resp 17 09/05/24 08:00 BP 118/77 09/05/24 07:37 Pulse Ox 100 09/05/24 07:37 FiO2 Intake & Output 09/04/24 09/05/24 09/05/24 18:59 06:59 18:59 Output Total 950 1000 Balance -950 -1000 Weight 68.039 kg Output: Urine 950 1000 Other: Voiding Method Urinal # Voids 6 1 # Bowel Movements 2 2 - Exam GENERAL EXAM: Alert, pleasant 79-year-old male, resting in bed, on 5 L nasal cannula, comfortable in no apparent distress. HEAD: Normocephalic. EYES: Normal reaction of pupils, equal size. NOSE: Clear with pink turbinates. THROAT: No erythema or exudates. NECK: No masses, no JVD. CHEST: No chest wall deformity. LUNGS: Equal air entry with coarse crackles in the bilateral bases. CVS: S1 and S2 normal with no audible murmur, regular rhythm. ABDOMEN: No hepatosplenomegaly, normal bowel sounds, no guarding or rigidity. SPINE: No scoliosis or deformity. There is a soft tissue mass noted on his b ack. SKIN: No rashes CENTRAL NERVOUS SYSTEM: No focal deficits, tone is normal in all 4 extremities. EXTREMITIES: There is no peripheral edema. There is significant clubbing, no cyanosis. Peripheral pulses are intact. - Labs CBC & Chem 7: 09/03/24 04:00 09/03/24 04:00 Assessment and Plan Plan: Acute hypoxemic respiratory failure secondary to suspected progressing of interstitial lung disease/pulmonary fibrosis. Significant clubbing noted of the fingers and toes. High-resolution CT scan of the chest reveals significant interstitial lung disease/pulmonary fibrosis/UIP, in addition to some background COPD. The fibrotic changes are extensive in the lung bases with extensive sam ycombing Acute on chronic hypoxic respiratory failure, oxygenation has gotten worse and the patient is currently on 5 L of O2 nasal cannula Severe pulm hypertension secondary chronic lung disease and chronic hypoxemia. The patient has WHO group 3 pulmonary pretension. Acute exacerbation of suspected chronic obstructive pulmonary disease History of chronic tobacco dependence however quit 10 years ago Poor medical compliance with no primary care provider Back cyst Previous history of PTSD and psychotic episodes Plan: Condition remains stable Continue DuoNeb inhalations Continue Symbicort Continue Lasix 20 mg IV every 12 hours this will be continued for another 24 hours if the patient continues to diurese reasonably well Titrate down the FiO2 as tolerated, currently on 5 L of O2 nasal cannula Will need home O2 at the time of discharge, arrange home O2 Increase his activity as tolerated Outpatient PFT may be a good candidate for pirfenidone treatment on outpatient basis as the patient CT scan of the chest is highly suspicious for IPF. Monitor anxiety and mentation. The patient has chronic anxiety and PTSD and previous history of psychotic events treated through the [facility].
[2024-09-06] MEDS ORDERED: OLANZapine 5 MG TAB PO PRN (13:23)
[2024-09-06] MEDS ORDERED: OLANZapine 10 MG VIAL IM PRN (13:23)
--- NOTE | 2024-09-06 13:33 | P.CN ---
Psychiatric Consult - . Consult date: 09/06/24 Consult:: 09/06/24 13:23 IDENTIFYING DATA: This patient is a 79-year-old male, living alone in an apartment, on disability REASON FOR REFERRAL: Psychiatry was consulted for PTSD, hallucinations HISTORY OF PRESENT ILLNESS: The patient presented to the hospital with shortness of breath. Chest x-ray revealed pneumonia and CTA chest showed marked interstitial fibrotic disease with pulmonary hypertension and patient was started on steroids and antibiotics. He is currently on oxygen. Patient 2 nights previously exhibited hallucinations with agitation. He has a history of hallucinations and PTSD however is currently not on any medications to treat either. Patient seen and evaluated in his room and he was A&Ox3 other than stating the date was the instead of the . He reports a 10-year history of being in the [employer] with several deployments including in the [place] War, [place] and [place]. He does admit to current symptoms of PTSD including feeling as though sometimes he is in a current war zone with flashbacks and intermittent nightmares. He states despite these symptoms he feels fine, more stable than previous years. He states he has never been treated for the symptoms as he prefers to deal with them on his own without the assistance of medications. He reports a history of insomnia and hallucinations however he denied any issues with sleep or hallucinations at this time. Patient was circumstantial in conversation at times and tangential at others. He was not open to starting an antidepressant to treat his PTSD however this was encouraged in addition to considering counseling however patient declined this as well. At this time patient denies any suicidal or homicidal ideations, intent or plan. Patient denies any auditory, visual hallucinations and denies any paranoia or delusions. Patients admits to using no substances. PAST PSYCHIATRIC HISTORY: Patient has a history of PTSD. Patient denies being on any psychiatric medications. Patient denies any previous psychiatric hospitalizations. Patient denies any psychiatric outpatient follow-up. Patient denies any history of suicide attempts in the past. PAST MEDICAL HISTORY: Denies. ALLERGIES: as per EMR. CHEMICAL DEPENDENCY HISTORY: as per HPI. FAMILY PSYCHIATRIC/SUBSTANCE USE HISTORY: Denies SOCIAL HISTORY: Patient was born and raised in [place]. Patient is single and has no children. He completed some college however is currently on SSI, living independently in an apartment. MENTAL STATUS EXAM: General Appearance: Patient appears to be stated age is alert, pleasant, and cooperative. Patient appears to have fair hygiene and grooming wearing hospital gown with fair eye contact. Behavior: Patient is calmly lying in bed without any agitated behavior. Speech: Patient's speech is fluent and nonpressured. Mood/Affect: Patient reports their mood is "all right", affect is congruent, constricted Suicidality/Homicidality: Patient denies having any suicidal or homicidal ideation intent or plan. Perceptions: Patient denies any visual hallucinations and denies any auditory hallucinations Though content/process: There is no evidence of any delusional thought content and thought process is circumstantial. Memory and concentration: AOX3, grossly intact for the purposes of this session. Judgment and insight: Limited IMPRESSIONS: PTSD Rule out delirium PLAN: -At this time patient DOES NOT meet criteria for inpatient psychiatric admission. -Delirium precautions recommended with patient including - avoiding use of narcotics and LETTER CARRIER sedatives, limit anticholinergic medications when possible, frequent re-orientation, minimize use of restraints, open window shades during the day and close them at night -Would recommend the following medication changes/additions: Start Zyprexa 5 mg p.o./IM as needed for acute safety concerns/agitation. Patient was not open to starting an antidepressant for PTSD despite encouragement and he also declined counseling at this time -Psychiatry will sign off at this time -Please contact with any questions.
--- NOTE | 2024-09-06 16:02 | P.PN ---
Subjective Progress Note Date: 09/06/24 Subjective: Patient seen and examined at bedside. Psychiatry consult recommends delirium precautions, no need for inpatient admission. Vitals Signs Reviewed. Gen: In NAD, non-toxic HEENT: normocephalic, atraumatic, hearing acuity is intant, mucous membranes moist CVS: perfusing all extremities well, no pitting edema, Respiratory: symmetric chest expansion, no accessory muscle use, GI: soft, NTTP, ND, : no suprapubic tenderness, no CVA tenderness MSK/Derm: no rashes, cyanosis Neuro: CN II-XII intact, no motor weakness, Assessment and Plan: Active: Acute hypoxic respiratory failure, likely secondary to interstitial lung disease History of nicotine dependence Diffuse hilar and mediastinal lymphadenopathy Severe pulmonary hypertension - Pulmonology following, patient kept on Lasix 20 IV every 12 hours, monitor electrolytes - Also on Symbicort twice daily, DuoNebs 4 times daily, every 2 hours as needed - Continue to wean oxygen Back pain Cyst - Surgery following, patient refusing I&D, will need outpatient follow-up History of PTSD History of psychosis - Psychiatry consulted DVT ppx: Lovenox Code status: Full code Anticipated discharge place: Pending clinical course Anticipated discharge time: Pending clinical course Objective - Vital Signs Vital signs: Vital Signs Temp 98.2 F 09/06/24 13:21 Pulse 80 09/06/24 15:45 Resp 20 09/06/24 13:21 BP 91/52 09/06/24 13:21 Pulse Ox 93 L 09/06/24 13:21 FiO2 Intake & Output 09/05/24 09/06/24 09/06/24 18:59 06:59 18:59 Output Total 1300 250 Balance -1300 -250 Weight 68.039 kg Output: Urine 1300 250 Other: Voiding Method Urinal Diaper # Voids 5 # Bowel Movements 4 1 - Labs CBC & Chem 7: 09/03/24 04:00 09/03/24 04:00
--- NOTE | 2024-09-06 19:34 | P.PN ---
Subjective Progress Note Date: 09/06/24 On 09/02/2024, patient is being seen for a follow-up. Condition is stable. Denies having any specific complaints. The patient was supposed to have a surgical incision and drainage of a cyst and he was unable to stay n.p.o. and based on that the surgery was canceled. Respiratory status remained stable and the patient currently is on 3 Suboxone by nasal cannula with a pulse ox of 99%. He is CAT scan of the chest that was done on 08/31/2024 shows chronic ILD consistent with IPF/UIP. The patient also has pulmonary arterial distention and the patient has a borderline enlargement of the ascending thoracic aortic dimension. The white cell count at 9.5 with a hemoglobin of 15.6 and a platelet count of 275. BUN is 21 with a creatinine of 0.5. He has chronic metabolic alkalosis with a serum bicarb of 33. Calcium level is at 7.5. Remains on DuoNeb nebulized him as [id number]. Remains on Symbicort. On 09/03/2024, patient is being seen for a follow-up. The cyst on his back has not been drained and this will be drained at a later stage on outpatient basis. Meanwhile, the patient remains on Symbicort and DuoNeb nebulizer treatments [id number]. Oxygenation is stable and the patient is currently on 8 L of O2 nasal cannula with a pulse ox of 95%. Chest x-ray from 09/02/2024 showed chronic pulmonary fibrosis. And an echocardiogram was also done today and the patient has a preserved LV function with an ejection fraction of 60 to 65%, patient also has normal LV function with mild concentric LVH, there is severe dilatation of the right ventricle with flattening of the interventricular septum suggestive of pulmonary hypertension and estimated PA pressure is around 60 mmHg. There is also mild degree to moderate degree of tricuspid regurgitation and trivial aortic insufficiency. Labs from today shows a white cell count of 7.5, hemoglobin 11.9 and a platelet count of 228. Electrolytes are all stable. BUN is 24 with a creatinine of 1. The patient's proBNP level at time of admission was 6410. CT of the chest was done on 08/29/2024 and shows no evidence of any pulmonary embolism. The patient had extensive fibrotic changes and honeycombing throughout the lung lopez especially in the lung bases with some background emphysema. Obviously, the patient has advanced lung disease. On 09/04/2024, the patient is stable resting comfortably in bed with no history of pulmonary fibrosis. Currently on 6 L of oxygen by nasal cannula with a pulse ox of 96%. No new complaints for now. Resting comfortably in bed. No cough or sputum production. No chest tightness or wheezing. The white cell count 7.4 with a hemoglobin of 0.9 and a platelet count of 228. BUN is 24 with a creatinine of 1. Electrolytes are normal. No altered mentation. No other specific events overnight. The patient has significant pulmonary pretension related to chronic hypoxemia. The patient will need home O2 and this should be delivered to him at time of discharge. Blood culture showing no growth to date and procalcitonin was negative at less than 0.20.. -Echocardiogram completed showing a preserved EF of 60 to 65% with severe dilation of right ventricle with flattening of interventricular septum suggestive of volume and pressure overload of right ventricle with significant pulmonary hypertension, mild biatrial enlargement, mitral regurgitation of a mild degree and moderate tricuspid regurgitation with trivial aortic insufficiency. The patient remains on IV Lasix and the patient is negative fluid balance of at least 2 L over the past 24 hours. Renal function remains stable. On 09/05/2024, the patient is being seen for a follow-up. This is a case of pulmonary fibrosis chronic hypoxic story failure and the patient has chronic pulmonary hypertension related to chronic hypoxemia. The patient is currently on 5 L of oxygen by nasal cannula with a pulse ox of 93%. The patient is still on IV Lasix. The patient is diuresing well and the patient remains a negative fluid balance of 1.9 L over the past 24 hours. No new labs are available from today. He has no specific complaints. Will need home O2. The patient is occasionally having hallucination and agitation and is mainly regarding overnight. He has previous history of PTSD and previous history of psychotic episodes. He has been treated through the [facility]. The back cyst will be deferred to a later stage for surgical excision. 09/06/2024, the patient is stable on 4 L of oxygen by nasal cannula. The patient had a psychiatric evaluation and the patient did not meet inpatient criteria for psychiatric admission. The patient was offered Zyprexa 5 mg p.o./IM as needed for agitation. Patient was not open to start any form of antidepressant treatment for PTSD. Meanwhile, no new labs are available from today. Respiratory status stable and the patient has chronic stable pulmonary fibrosis. He remains on Lasix 40 mg IV every 12 hours. Fluid balance is also negative and the patient continues to produce excellent urine output. Objective - Vital Signs Vital signs: Vital Signs Temp 97.7 F 09/06/24 07:00 Pulse 80 09/06/24 11:47 Resp 19 09/06/24 07:00 BP 118/75 09/06/24 07:00 Pulse Ox 98 09/06/24 08:34 FiO2 Intake & Output 09/05/24 09/06/24 09/06/24 18:59 06:59 18:59 Output Total 1300 250 Balance -1300 -250 Weight 68.039 kg Output: Urine 1300 250 Other: Voiding Method Urinal Diaper # Voids 5 # Bowel Movements 4 1 - Exam GENERAL EXAM: Alert, pleasant 79-year-old male, resting in bed, on 4 L nasal cannula, comfortable in no apparent distress. HEAD: Normocephalic. EYES: Normal reaction of pupils, equal size. NOSE: Clear with pink turbinates. THROAT: No erythema or exudates. NECK: No masses, no JVD. CHEST: No chest wall deformity. LUNGS: Equal air entry with coarse crackles in the bilateral bases. CVS: S1 and S2 normal with no audible murmur, regular rhythm. ABDOMEN: No hepatosplenomegaly, normal bowel sounds, no guarding or rigidity. SPINE: No scoliosis or deformity. There is a soft tissue mass noted on his back. SKIN: No rashes CENTRAL NERVOUS SYSTEM: No focal deficits, tone is normal in all 4 extremities. EXTREMITIES: There is no peripheral edema. There is significant clubbing, no cyanosis. Peripheral pulses are intact. - Labs CBC & Chem 7: 09/03/24 04:00 09/03/24 04:00 Assessment and Plan Plan: Acute hypoxemic respiratory failure secondary to suspected progressing of in terstitial lung disease/pulmonary fibrosis. Significant clubbing noted of the fingers and toes. High-resolution CT scan of the chest reveals significant interstitial lung disease/pulmonary fibrosis/UIP, in addition to some background COPD. The fibrotic changes are extensive in the lung bases with extensive honeycombing Acute on chronic hypoxic respiratory failure, oxygenation has gotten worse and the patient is currently on 5 L of O2 nasal cannula Severe pulm hypertension secondary chronic lung disease and chronic hypoxemia. The patient has WHO group 3 pulmonary pretension. Acute exacerbation of suspected chronic obstructive pulmonary disease History of chronic tobacco dependence however quit 10 years ago Poor medical compliance with no primary care provider Back cyst Previous history of PTSD and psychotic episodes Plan: Condition remains stable, respiratory status is stable Continue DuoNeb inhalations Continue Symbicort Continue Lasix and switch this patient to 40 mg of Lasix on a daily basis and discontinue IV Lasix Titrate down the FiO2 as tolerated, currently on 4 L of O2 nasal cannula Will need home O2 at the time of discharge, arrange home O2 Increase his activity as tolerated Outpatient PFT may be a good candidate for pirfenidone treatment on outpatient basis as the patient CT scan of the chest is highly suspicious for IPF. Monitor anxiety and mentation. The patient has chronic anxiety and PTSD and previous history of psychotic events treated through the [facility]. Psych evaluation was done and the patient declined any treatment for PTSD.
[2024-09-06 21:42] VITALS: RESP 18
[2024-09-07 09:49] VITALS: BP 109/75; PULSE 88; TEMP 97.5
[2024-09-07] MEDS: FUROSEMIDE 40 MG TAB PO SCH (10:10)
--- NOTE | 2024-09-07 15:03 | P.DS ---
Providers Date of admission: 08/29/24 20:32 Expected date of discharge: 09/07/24 Attending physician: Eliud Lopez MD Consults: 08/29/24 20:32 Consult Physician Routine Consulting Provider: Onesimo Frederick Consult Reason/Comments: keturah Do you want consulting provider notified?: Yes 09/05/24 13:57 Consult Physician Routine Consulting Provider: Sav Garcias Consult Reason/Comments: PTSD, Hallucinations, Do you want consulting provider notified?: Yes Primary care physician: Stated None Hospital Course: Acute hypoxic respiratory failure, likely secondary to interstitial lung disease History of nicotine dependence Diffuse hilar and mediastinal lymphadenopathy Severe pulmonary hypertension Back pain Cyst History of PTSD History of psychosis Hospital Course: This is a 79-year-old male patient with no significant past medical history except for tobacco abuse who presented to the ER complaining of difficulty breathing. Upon arrival to the ED, patient was hypertensive with a diastolic blood pressure of 100 and was hypoxic so nasal cannula was applied. Labs done and no significant leukocytosis. INR 1.3, D-dimer 2.2, chemistry with serum CO2 of 32, alk phos 161. COVID-19/RSV/influenza PCR is negative. Chest x-ray suggestive of multifocal pneumonia. CT angio did not show any pulmonary embolism but evidence of pulmonary arterial hypertension and marked interstitial fibrotic disease suggesting UIP with enlarged mediastinal and hilar adenopathy . Patient was treated with DuoNebs, steroids and antibiotics. Patient will be admitted for further management patient was treated with IV Lasix, Symbicort, DuoNebs and pain control with improvement back to baseline with diuretics. Cardiology consulted and cleared the patient. Patient will follow-up with his primary care physician upon discharge. I spent 32 minutes coordinating this discharge Gen: In NAD, non-toxic HEENT: normocephalic, atraumatic, hearing acuity is intant, mucous membranes moist CVS: perfusing all extremities well, no pitting edema, Respiratory: symmetric chest expansion, no accessory muscle use, GI: soft, NTTP, ND, : no suprapubic tenderness, no CVA tenderness MSK/Derm: no rashes, cyanosis Neuro: CN II-XII intact, no motor weakness, Patient Condition at Discharge: Good Plan - Discharge Summary Discharge Rx Participant: Yes New Discharge Prescriptions: New Furosemide [Lasix] 40 mg PO DAILY #30 tab Budesonide-Formot 160-4.5 Mcg [Symbicort 160-4.5 Mcg Inhaler] 2 puff INHALATION RT-BID #1 each OLANZapine [ZyPREXA] 2.5 mg PO BID #30 tab Discharge Medication List Budesonide-Formot 160-4.5 Mcg [Symbicort 160-4.5 Mcg Inhaler] 2 puff INHALATION RT-BID #1 each 09/07/24 [Rx] Furosemide [Lasix] 40 mg PO DAILY #30 tab 09/07/24 [Rx] OLANZapine [ZyPREXA] 2.5 mg PO BID #30 tab 09/07/24 [Rx] Follow up Appointment(s)/Referral(s): [facility] [NON-STAFF] - 1 Week Daphne Lucero DO [Doctor of Osteopathic Medicine] - 1 Week Patient Instructions/Handouts: COPD (Chronic Obstructive Pulmonary Disease) (DC) Discharge Disposition: HOME SELF-CARE
--- NOTE | 2024-09-07 23:56 | P.PN ---
Subjective Progress Note Date: 09/07/24 On 09/02/2024, patient is being seen for a follow-up. Condition is stable. Denies having any specific complaints. The patient was supposed to have a surgical incision and drainage of a cyst and he was unable to stay n.p.o. and based on that the surgery was canceled. Respiratory status remained stable and the patient currently is on 3 Suboxone by nasal cannula with a pulse ox of 99%. He is CAT scan of the chest that was done on 08/31/2024 shows chronic ILD consistent with IPF/UIP. The patient also has pulmonary arterial distention and the patient has a borderline enlargement of the ascending thoracic aortic dimension. The white cell count at 9.5 with a hemoglobin of 15.6 and a platelet count of 275. BUN is 21 with a creatinine of 0.5. He has chronic metabolic alkalosis with a serum bicarb of 33. Calcium level is at 7.5. Remains on DuoNeb nebulized him as [id number]. Remains on Symbicort. On 09/03/2024, patient is being seen for a follow-up. The cyst on his back has not been drained and this will be drained at a later stage on outpatient basis. Meanwhile, the patient remains on Symbicort and DuoNeb nebulizer treatments [id number]. Oxygenation is stable and the patient is currently on 8 L of O2 nasal cannula with a pulse ox of 95%. Chest x-ray from 09/02/2024 showed chronic pulmonary fibrosis. And an echocardiogram was also done today and the patient has a preserved LV function with an ejection fraction of 60 to 65%, patient also has normal LV function with mild concentric LVH, there is severe dilatation of the right ventricle with flattening of the interventricular septum suggestive of pulmonary hypertension and estimated PA pressure is around 60 mmHg. There is also mild degree to moderate degree of tricuspid regurgitation and trivial aortic insufficiency. Labs from today shows a white cell count of 7.5, hemoglobin 11.9 and a platelet count of 228. Electrolytes are all stable. BUN is 24 with a creatinine of 1. The patient's proBNP level at time of admission was 6410. CT of the chest was done on 08/29/2024 and shows no evidence of any pulmonary embolism. The patient had extensive fibrotic changes and honeycombing throughout the lung lopez especially in the lung bases with some background emphysema. Obviously, the patient has advanced lung disease. On 09/04/2024, the patient is stable resting comfortably in bed with no history of pulmonary fibrosis. Currently on 6 L of oxygen by nasal cannula with a pulse ox of 96%. No new complaints for now. Resting comfortably in bed. No cough or sputum production. No chest tightness or wheezing. The white cell count 7.4 with a hemoglobin of 0.9 and a platelet count of 228. BUN is 24 with a creatinine of 1. Electrolytes are normal. No altered mentation. No other specific events overnight. The patient has significant pulmonary pretension related to chronic hypoxemia. The patient will need home O2 and this should be delivered to him at time of discharge. Blood culture showing no growth to date and procalcitonin was negative at less than 0.20.. -Echocardiogram completed showing a preserved EF of 60 to 65% with severe dilation of right ventricle with flattening of interventricular septum suggestive of volume and pressure overload of right ventricle with significant pulmonary hypertension, mild biatrial enlargement, mitral regurgitation of a mild degree and moderate tricuspid regurgitation with trivial aortic insufficiency. The patient remains on IV Lasix and the patient is negative fluid balance of at least 2 L over the past 24 hours. Renal function remains stable. On 09/05/2024, the patient is being seen for a follow-up. This is a case of pulmonary fibrosis chronic hypoxic story failure and the patient has chronic pulmonary hypertension related to chronic hypoxemia. The patient is currently on 5 L of oxygen by nasal cannula with a pulse ox of 93%. The patient is still on IV Lasix. The patient is diuresing well and the patient remains a negative fluid balance of 1.9 L over the past 24 hours. No new labs are available from today. He has no specific complaints. Will need home O2. The patient is occasionally having hallucination and agitation and is mainly regarding overnight. He has previous history of PTSD and previous history of psychotic episodes. He has been treated through the OR psychiatry. The back cyst will be deferred to a later stage for surgical excision. 09/06/2024, the patient is stable on 4 L of oxygen by nasal cannula. The patient had a psychiatric evaluation and the patient did not meet inpatient criteria for psychiatric admission. The patient was offered Zyprexa 5 mg p.o./IM as needed for agitation. Patient was not open to start any form of antidepressant treatment for PTSD. Meanwhile, no new labs are available from today. Respiratory status stable and the patient has chronic stable pulmonary fibrosis. He remains on Lasix 40 mg IV every 12 hours. Fluid balance is also negative and the patient continues to produce excellent urine output. 09/07/2024, no new complaints. Oxygenation is stable and the patient remains on 5 L of oxygen by nasal cannula with a pulse ox of 96%. No interval worsening shortness of breath. Chronic dry cough. Chronic dyspnea persists. Patient has been diuresed well the patient has been switched to oral Lasix. The patient was discharged home on home oxygen. No other new complaints otherwise for now. Objective - Vital Signs Vital signs: Vital Signs Temp 97.5 F L 09/07/24 07:43 Pulse 88 09/07/24 07:43 Resp 18 09/07/24 07:43 BP 109/75 09/07/24 07:43 Pulse Ox 96 09/07/24 09:00 FiO2 Intake & Output 09/06/24 09/07/24 09/07/24 18:59 06:59 18:59 Output Total 600 300 Balance -600 -300 Output: Urine 600 300 Other: Voiding Method Urinal # Voids 2 3 # Bowel Movements 2 2 1 - Exam GENERAL EXAM: Alert, pleasant 79-year-old male, resting in bed, on 4 L nasal cannula, comfortable in no apparent distress. HEAD: Normocephalic. EYES: Normal reaction of pupils, equal size. NOSE: Clear with pink turbinates. THROAT: No erythema or exudates. NECK: No masses, no JVD. CHEST: No chest wall deformity. LUNGS: Equal air entry with coarse crackles in the bilateral bases. CVS: S1 and S2 normal with no audible murmur, regular rhythm. ABDOMEN: No hepatosplenomegaly, normal bowel sounds, no guarding or rigidity. SPINE: No scoliosis or deformity. There is a soft tissue mass noted on his back. SKIN: No rashes CENTRAL NERVOUS SYSTEM: No focal deficits, tone is normal in all 4 extremities. EXTREMITIES: There is no peripheral edema. There is significant clubbing, no cyanosis. Peripheral pulses are intact. - Labs CBC & Chem 7: 09/03/24 04:00 09/03/24 04:00 Assessment and Plan Plan: Acute hypoxemic respiratory failure secondary to suspected progressing of interstitial lung disease/pulmonary fibrosis. Significant clubbing noted of the fingers and toes. High-resolution CT scan of the chest reveals significant interstitial lung disease/pulmonary fibrosis/UIP, in addition to some background COPD. The fibrotic changes are extensive in the lung bases with extensive honeycombing Acute on chronic hypoxic respiratory failure, oxygenation has gotten worse and the patient is currently on 5 L of O2 nasal cannula Severe pulm hypertension secondary chronic lung disease and chronic hypoxemia. The patient has WHO group 3 pulmonary pretension. Acute exacerbation of suspected chronic obstructive pulmonary disease History of chronic tobacco dependence however quit 10 years ago Poor medical compliance with no primary care provider Back cyst Previous history of PTSD and psychotic episodes Plan: Patient should be able to go home today. Condition remains stable, respiratory status is stable Continue DuoNeb inhalations Continue Symbicort Continue Lasix 40 mg p.o. daily Arrange home O2 Will need home O2 at the time of discharge, arrange home O2 Increase his activity as tolerated Outpatient PFT may be a good candidate for pirfenidone treatment on outpatient basis as the patient CT scan of the chest is highly suspicious for IPF. Monitor anxiety and mentation. The patient has chronic anxiety and PTSD and previous history of psychotic events treated through the [place] psychiatric clinic. Psych evaluation was done and the patient declined any treatment for PTSD.
== END 2024-09-07 15:00 | disposition home or self-care (01) | DRG 196 ==
LOC: EC 17:07 → 4SSUR 20:32
PROVIDERS: ADMIT Student in an Organized Health Care Education/Training Program; ATTEND Student in an Organized Health Care Education/Training Program
DX: J84.9 Interstitial pulmonary disease, unspecified (principal); J96.21 Acute and chronic respiratory failure with hypoxia; E87.3 Alkalosis; I27.23 Pulmonary hypertension due to lung diseases and hypoxia; J43.9 Emphysema, unspecified; J47.0 Bronchiectasis with acute lower respiratory infection; J84.112 Idiopathic pulmonary fibrosis; Z11.52 Encounter for screening for COVID-19; L72.9 Follicular cyst of the skin and subcutaneous tissue, unspecified; R59.0 Localized enlarged lymph nodes; F43.10 Post-traumatic stress disorder, unspecified; R79.1 Abnormal coagulation profile; Z87.891 Personal history of nicotine dependence
CPT/HCPCS: 36415; 71045; 71046; 71250; 71275; 80048; 80053; 83605; 83735; 83880; 84145; 84484; 85025; 85027; 85379; 85610; 85730; 86738; 87040; 87449; 87496; 87498; 87502; 87529; 87634; 87635; 87636; 87798; 93306; 94640; 94760; 96374; 99285